=== PATIENT | male | born 1970 | race Caucasian/White ===

== ENCOUNTER 2018-12-04 14:35 | Emergency (ER) | payer MEDICAID, SELFPAY ==
[2018-12-04 14:36] VITALS: BP 117/63; PULSE 68; RESP 15; TEMP 36.6; O2SAT 97; BMI 24.3
--- NOTE | 2018-12-04 15:19 | ED.VIS.GEN ---
History of Present Illness Chief Complaint: Back Narrative: 48-year-old male presents with right lower back pain radiating into his right buttocks since yesterday while doing a bunch of yard work. He denies any direct trauma but states that he was doing a lot of bending over and lifting. The pain is worse with bending forward and better with ice. He denies bowel bladder dysfunction. Denies groin paresthesias. Denies lower extremity weakness. He can still ambulate without difficulty but he could not finish his shift today so he came in here for a work excuse. He has had a history of chronic back pain and underwent a procedure in the past. He has been doing well for quite some time until yesterday. He denies fever, chills, or history of IV drug use. Past Medical History - Allergies and Home Meds Allergies/Adverse Reactions: Allergies No Known Allergies Allergy (Verified 12/04/18 14:42) Primary Care Physician: Care Physician,No Primary [Primary Care Provider] - Prior records reviewed: Yes Surgical History: - - He has had surgery on his left hand to repair fractures after punching a wall. Smoking Status: Former smoker Review of Systems General: Denies: Chills, Fever, Sweats Eyes: Denies: Visual changes - bilaterally, Diplopia ENT: Denies: Rhinorrhea, Sore throat Cardiovascular: Denies: Chest pain, Palpitations Respiratory: Denies: Dyspnea, Cough, Dyspnea on exertion Gastrointestinal: Denies: Abdominal pain, Nausea, Vomiting, Diarrhea, Melena, Hematochezia Genitourinary: Denies: Dysuria, Hematuria, Frequency Musculoskeletal: Reports: Back pain. Denies: Extremity Pain Skin: Denies: Rash, Wounds Neurological: Denies: Headache, Weakness, Numbness Physical Exam Vital Signs/Narrative: Vital Signs Temp Pulse Resp BP Pulse Ox 12/04/18 14:36 97.9 F 68 15 117/63 97 General: Well nourished, Well developed, No Acute Distress Head: Normocephalic, Atraumatic Eyes: Perrl, EOMI ENT: Moist mucous membranes, No rhinorrhea Neck: Supple, Nontender Cardiovascular: Regular rate, Regular rhythm, No murmurs Respiratory: No distress, CTA bilaterally, Chest nontender Abdomen: Soft, Nontender, Nondistended, Normal bowel sounds Back: Normal Inspection, - - Paraspinal lumbar tenderness on the right. No midline tenderness, erythema, or fluctuance. Overlying skin looks normal. No rash. Extremities: Nontender, No edema Skin: Normal color, No rash Neurological: Alert, Oriented x3, Cranial nerves II-XII grossly intact, Normal Strength, Normal Sensation Psychological: Normal affect, Normal Mood Diagnostic/Tx/Re-eval - Medical Decision Making No evidence of cauda equina syndrome or paraspinal/epidural abscess. No evidence of cauda equina. He is standing in the room I examined him. He can stand on his toes without difficulty. I do not feel he needs an emergent MRI. His pain was addressed and he was given prescriptions to use at home. He will follow-up with his doctor if not improving and return here if worse. ED Disposition - Plan for ED Patient: Diagnosis: Right-sided low back pain with sciatica Instructions: BACK PAIN (Acute or Chronic), BACK PAIN w/ SCIATICA Prescriptions: cycloBENZAPRine HCl [Flexeril] 10 mg PO TID PRN #20 tablet PRN Reason: Muscle Spasm MethylPREDNISolone DosePak [Medrol DosePak] 4 mg PO UD #1 box Naproxen [Naprosyn] 500 mg PO BID PRN #20 tablet Referrals: Care Physician,No Primary [Primary Care Provider] - As soon as possible
[2018-12-04] MEDS: cycloBENZAPRine HCl 10 MG Tablet PO (15:32)
[2018-12-04] MEDS: Naproxen 500 MG Tablet PO (15:32)
[2018-12-04 15:34] VITALS: PULSE 72; RESP 16; O2SAT 96
== END 2018-12-04 15:35 | disposition home or self-care (01) ==
LOC: ED 15:00
PROVIDERS: Emergency Provider Emergency Medicine
DX: M54.41 Lumbago with sciatica, right side (principal); Z87.891 Personal history of nicotine dependence
CPT/HCPCS: 99283

== ENCOUNTER 2019-12-07 09:14 | Emergency (ER) | payer MEDICAID, SELFPAY ==
[2019-12-07 09:15] VITALS: BP 134/78; PULSE 76; RESP 15; TEMP 36.4; O2SAT 97; BMI 25.5
--- NOTE | 2019-12-07 09:30 | RAD_ITS ---
STUDY: X-RAY - RIGHT HAND REASON FOR EXAM: Male, 49 years old. RIGHT HAND PAIN. SMALL PUNCTURE HOLE FROM NAIL ON THE MEDIAL SIDE. HX OF HAND SURGERY TECHNIQUE: Three view(s) of the hand. COMPARISON: None. FINDINGS: Normal radiocarpal articulation. Normal distal radioulnar joint. Normal visualized carpal bones. Normal carpal articulations surgical hardware in the hamate is free of complication Normal carpometacarpal articulation of the thumb. Normal second through fifth carpometacarpal joints. Old healed fifth metacarpal fracture. Normal metacarpophalangeal joint of the thumb. Normal interphalangeal joint of the thumb. Normal proximal and distal phalanges of the thumb. Normal metacarpophalangeal joints of the second through fifth fingers. Normal proximal and distal interphalangeal joints of the second through fifth fingers. Normal phalanges of the second through fifth fingers. The soft tissue structures are unremarkable. RAD/Hand Min 3 Views IMPRESSION: No acute findings Old healed fifth metacarpal fracture Surgical hardware in the hamate free of complication Electronically Signed: Dez Dumont MD at 10:09 EDT , Service support ,
--- NOTE | 2019-12-07 09:30 | ED.DCSUM_ITS ---
History of Present Illness Chief Complaint: Laceration Informant: Patient Narrative: 49-year-old male with no significant past medical history presents with concern for right hand injury. States that he woke up this morning and tripped putting his hand on a nail head. States that it did puncture through his skin approximately 1 cm deep. States that he is having pain in this area. Not up-to-date on tetanus. Denies any sensory changes. Past Medical History - Allergies and Home Meds Allergies/Adverse Reactions: Allergies No Known Allergies Allergy (Verified 12/07/19 09:17) Primary Care Physician: Care Physician,No Primary [Primary Care Provider] - Past Medical History: None Surgical History: - - He has had surgery on his left hand to repair fractures after punching a wall. Lives: Alone Alcohol: None Drugs: None Review of Systems General: Denies: Chills, Fever, Sweats Eyes: Denies: Visual changes - bilaterally, Diplopia ENT: Denies: Rhinorrhea, Sore throat Cardiovascular: Denies: Chest pain, Palpitations Respiratory: Denies: Dyspnea, Cough, Dyspnea on exertion Gastrointestinal: Denies: Abdominal pain, Nausea, Vomiting, Diarrhea, Melena, Hematochezia Genitourinary: Denies: Dysuria, Hematuria, Frequency Musculoskeletal: Denies: Back pain, Extremity Pain Skin: Reports: Wounds. Denies: Rash Neurological: Denies: Headache, Weakness, Numbness Physical Exam Vital Signs/Narrative: Vital Signs Temp Pulse Resp BP Pulse Ox 12/07/19 09:15 97.6 F L 76 15 134/78 H 97 Inital Vital Signs reviewed: Yes General: Well nourished, Well developed, No Acute Distress Head: Normocephalic, Atraumatic Eyes: Perrl, EOMI ENT: Moist mucous membranes, No rhinorrhea Neck: Supple, Nontender Cardiovascular: Regular rate, Regular rhythm, No murmurs Respiratory: No distress, CTA bilaterally, Chest nontender Abdomen: Soft, Nontender, Nondistended, Normal bowel sounds Back: Nontender, Normal Inspection Extremities: Nontender, No edema Skin: Normal color, No rash, - - Small puncture wound to the palmar aspect of the right hand. Not actively bleeding. Mild tenderness to palpation. Full range of motion of all fingers. Neurological: Alert, Oriented x3, Cranial nerves II-XII grossly intact, Normal Strength, Normal Sensation Psychological: Normal affect, Normal Mood Diagnostic/Tx/Re-eval Clinical Impression(s) from Imaging Studies Hand X-Ray 12/07/19 09:30 IMPRESSION: No acute findings Old healed fifth metacarpal fracture Surgical hardware in the hamate free of complication Electronically Signed: Dez Dumont MD at 10:09 EDT , Service support , - Medical Decision Making Appears well nontoxic. Vital signs within normal limits. X-ray negative. Tetanus updated. Given the nature of the wound patient be placed on doxycycline for the next 10 days. Asked to return for any increasing pain or drainage. Will be given 2 days off of work. Discharged home in stable condition. Impression: 1. Right hand puncture wound 2. Tetanus update ED Disposition - Plan for ED Patient: Disposition: Home or Assisted Living Instructions: ED Wound Puncture General Prescriptions: Doxycycline 100 mg PO BID #14 cap Transmission Status: Pending to [facility] #[id number] Referrals: Care Physician,No Primary [Primary Care Provider] -
[2019-12-07] MEDS: Diphth,Pertuss(Acell),Tet Vac 0.5 ML Vial IM (09:56)
[2019-12-07 10:21] VITALS: RESP 16
--- NOTE | 2019-12-07 10:22 | ED.RN ---
REVIEWED D/C INSTRUCTIONS, FOLLOW UP CARE, AND S/S THAT WOULD WARRANT A RETURN TO THE ED WITH PT. PT VERBALIZED AN UNDERSTANDING AND DENIES FURTHER QUESTIONS FOR THIS RN. PT SKIN P/W/D, RESP EVEN AND UNLABORED, PT A&O X 3, NO DISTRESS NOTED. PT AMBULATED OUT OF ED, GAIT STEADY.
== END 2019-12-07 10:24 | disposition home or self-care (01) ==
PROVIDERS: Emergency Provider Emergency Medicine
DX: S61.431A Puncture wound without foreign body of right hand, initial encounter (principal); W18.41XA Slipping, tripping and stumbling without falling due to stepping on object, initial encounter; Y93.9 Activity, unspecified; Y92.89 Other specified places as the place of occurrence of the external cause; Y99.9 Unspecified external cause status; Z23 Encounter for immunization
CPT/HCPCS: 73130; 90471; 90715; 99282

== ENCOUNTER 2020-01-07 10:22 | Emergency (ER) | payer MEDICAID, SELFPAY ==
[2020-01-07 10:23] VITALS: BP 109/71; PULSE 89; RESP 17; TEMP 36; O2SAT 95; BMI 24.0
--- NOTE | 2020-01-07 10:47 | ED.DCSUM_ITS ---
History of Present Illness Chief Complaint: Cough Informant: Patient Onset: Yesterday Context: Gradual Onset Timing: Continuous Quality: [employer] cough Location: chest Current Severity: Moderate Maximum Severity: Moderate Worsened by: - - exertional dyspnea Relieved by: - - rest Associated Symptoms: Headache, Nausea, Vomiting - dry heaves this AM, Diarrhea - once yesterday, Shortness of Breath - w/ exertion, Nonproductive cough. Negative for: Nasal Congestion, Chest Pain, Hemoptysis Narrative: Patient started feeling poorly yesterday, with nausea and decreased appetite. Today he has felt a lot worse. Cold chills, myalgias, headache, exertional dyspnea, severe fatigue and malaise. 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 He denies any known contact with anyone infected with COVID-19. He denies traveling out of the immediate area recently. 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 Past Medical History - Allergies and Home Meds Allergies/Adverse Reactions: Allergies No Known Allergies Allergy (Verified 01/07/20 10:23) Primary Care Physician: Care Physician,No Primary [Primary Care Provider] - Past Medical History: None Surgical History: - - He has had surgery on his left hand to repair fractures after punching a wall. Review of Systems General: Reports: Chills, Malaise. Denies: Fever, Sweats Eyes: Denies: Visual changes - bilaterally, Diplopia ENT: Denies: Bilateral ear pain, Rhinorrhea, Sore throat Cardiovascular: Denies: Chest pain, Palpitations Respiratory: Reports: Dyspnea, Cough, Dyspnea on exertion. Denies: Sputum, Orthopnea Gastrointestinal: Reports: Nausea, Vomiting, Diarrhea. Denies: Abdominal pain, Melena, Hematochezia Genitourinary: Denies: Dysuria, Hematuria, Frequency Musculoskeletal: Reports: Myalgias, Back pain - Chronic. Denies: Neck pain, Swelling, Extremity Pain Skin: Denies: Rash, Wounds Neurological: Reports: Headache. Denies: Weakness, Numbness Physical Exam Vital Signs/Narrative: Vital Signs Temp Pulse Resp BP Pulse Ox 01/07/20 10:23 96.8 F L 89 17 109/71 95 Inital Vital Signs reviewed: Yes General: Well nourished, Well developed, - - No acute distress. Conversive in full sentences. Head: Normocephalic, Atraumatic Eyes: Perrl, EOMI Nose: Normal Inspection, No Rhinorrhea Neck: Supple, Nontender, No Lymphadenopathy, No Meningismus Cardiovascular: Regular rate, Regular rhythm, No murmurs Respiratory: No distress, CTA bilaterally, Chest nontender Abdomen: Soft, Nontender, Nondistended, Normal bowel sounds Back: Nontender, Normal Inspection. Negative for: CVA tenderness Extremities: Nontender, No edema. Negative for: Calf Tenderness Skin: Normal color, No rash, No Trauma Neurological: Alert, Oriented x3, Cranial nerves II-XII grossly intact, Normal Strength, Normal Sensation, Normal Gait Psychological: Normal affect, Normal Mood Diagnostic/Tx/Re-eval Chest X-Ray - ED: 1 View, Read by ED Physician, Normal, Heart, Lungs, Mediastinum, No Acute Disease - Medical Decision Making Chest x-ray unremarkable my interpretation. After Toradol and Zofran he feels a little better. He is not hypoxic and his vitals are normal, stable for discharge home and rest and quarantine as COVID-19 disease is certainly possible. He was tested, it is a send out and will return in 3-5 days. Given patient work note, prescription for Zofran, and appropriate quarantine discharge instructions. Referred to the next doctor on the unassigned list, Dr. Marinelli. ED Disposition - Plan for ED Patient: Disposition: Home or Assisted Living Diagnosis: Acute upper respiratory infection Instructions: ED URI Viral Prescriptions: Ondansetron [Zofran Odt] 8 mg PO Q8H PRN PRN #10 tab PRN Reason: Nausea Transmission Status: Pending to [facility] #30 Referrals: Chandler Marinelli, [NON CLINICAL AFFILIATE] - 1 Week if not improving Additional Instructions: See attached quarantine COVID-19 information.
[2020-01-07] MEDS: Ondansetron ODT 4 MG Tablet 8 MG PO (11:54)
[2020-01-07] MEDS: Ketorolac 60 MG/2 ML Vial IM (11:54)
[2020-01-07 11:55] VITALS: BP 117/80; PULSE 59; RESP 17; O2SAT 95
--- NOTE | 2020-01-07 11:58 | RAD_ITS ---
STUDY: X-RAY CHEST REASON FOR EXAM: Male, 49 years old. Cough, congestion, nausea, sore throat, SOB x today TECHNIQUE: Single AP portable view of the chest. COMPARISON: Comparison is made with prior study dated 02/11/2012. FINDINGS: There is hyperinflation of the lungs consistent with chronic obstructive lung disease (COPD). There is no demonstrated pleural abnormality. Normal size heart. Normal mediastinum and juan david. Normal visualized pulmonary arteries. Normal visualized aortic arch and descending thoracic aorta. Normal visualized thoracic spine. Normal visualized ribs, clavicles, and shoulders. There is no demonstrated abnormality of the visualized soft tissue structures of the upper abdomen. RAD/Chest 1 View (Portable) IMPRESSION: Hyperinflation. The lungs are clear. Electronically Signed: Emery Dunham, at 12:22 EDT , Service support ,
[2020-01-07 12:03] VITALS: O2SAT 96
[2020-01-07 13:29] VITALS: RESP 19; TEMP 36.6
== END 2020-01-07 13:30 | disposition home or self-care (01) ==
PROVIDERS: Emergency Provider Emergency Medicine
DX: J06.9 Acute upper respiratory infection, unspecified (principal)
CPT/HCPCS: 71045; 87635; 94799; 96372; 99283; U0003

== ENCOUNTER 2020-01-19 13:34 | Emergency (ER) | payer MEDICAID, SELFPAY ==
[2020-01-19 13:36] VITALS: BP 103/63; PULSE 78; RESP 18; TEMP 36.6; O2SAT 99; BMI 23.8
--- NOTE | 2020-01-19 13:48 | RAD_ITS ---
STUDY: X-RAY CHEST REASON FOR EXAM: Male, 49 years old. COUGH, CHILLS X 2 WEEKS TECHNIQUE: Frontal view of the chest COMPARISON: January 07 2020 FINDINGS: The lungs are clear and expanded. There is no demonstrated pleural abnormality. Normal size heart. Normal mediastinum and juan david. Normal visualized pulmonary arteries. Normal visualized aortic arch and descending thoracic aorta. Normal visualized thoracic spine. Normal visualized ribs, clavicles, and shoulders. There is no demonstrated abnormality of the visualized soft tissue structures of the upper abdomen. RAD/Chest 1 View (Portable) IMPRESSION: Normal x-ray examination of the chest. Electronically Signed: Bere Sultana, at 14:47 EDT Tel , Service support ,
--- NOTE | 2020-01-19 13:48 | EKG12_ITS ---
Test Reason : COUGH Blood Pressure : / mmHG Vent. Rate : 064 BPM Atrial Rate : 064 BPM P-R Int : 164 ms QRS Dur : 092 ms QT Int : 428 ms P-R-T Axes : 074 081 062 degrees QTc Int : 441 ms Normal sinus rhythm Poor R- wave Progression Confirmed by FELECIA GARNER, JENY ([id number]), editorial manager ILAN BLACK ([id number]) on 01/23/2020 10:00:49 AM Referred By: ANTONIA Confirmed By:JENY IZQUIERDO MD
--- NOTE | 2020-01-19 14:09 | ED.DCSUM_ITS ---
History of Present Illness Chief Complaint: Cough Informant: Patient Onset: Weeks Context: Sudden Onset Timing: Continuous Quality: Cough, upper respiratory symptoms, malaise and rigors Location: Respiratory and generalized Current Severity: Mild Maximum Severity: Moderate Worsened by: Dyspnea with activity Relieved by: Nothing Associated Symptoms: Read HPI Narrative: Patient is a 49-year-old male who was tested for Kopit 2 weeks ago. He presents because of persistent symptoms. He has been exposed to coworkers with COVID. He presents with shaking chills, myalgias and arthralgias. He complains of generalized weakness. His cough is essentially nonproductive. He is a smoker half pack per day. He does report rhinorrhea, congestion postnasal drainage and sore throat. He does complain of intermittent mild headache. Denies photopho poonam, neck pain or neck stiffness. He denies any auditory symptoms. He does complain of discomfort on the right side with deep breathing. He has no history of VTE. He has no complaint of leg swelling, discoloration or asymmetry. He denies any discoloration of his digits upper or lower extremity. He denies urologic symptoms. He does report orthostatic symptoms. He has had decreased appetite. Prior similar symptoms: Yes Recent Illness/Hospitalization: Yes - Past Medical History (1) Drug overdose, intentional Status: Acute (2) Chronic back pain greater than 3 months duration Status: Chronic (3) Depression Status: Chronic Past Medical History - Allergies and Home Meds Allergies/Adverse Reactions: Allergies No Known Allergies Allergy (Verified 01/19/20 13:38) Primary Care Physician: Care Physician,No Primary [Primary Care Provider] - Prior records reviewed: Yes Surgical History: noncontributory, - - He has had surgery on his left hand to repair fractures after punching a wall. Lives: Alone Smoking Status: Current every day smoker Alcohol: Rare Drugs: - - History of marijuana and drug use per prior medical records Review of Systems General: Reports: Chills, Malaise, Sweats. Denies: Fever, Weight loss Eyes: Denies: Visual changes - right, Blurred Vision - bilaterally ENT: Reports: Rhinorrhea, Sore throat. Denies: Bilateral ear pain Cardiovascular: Reports: Chest pain - Pleuritic right lower lobe. Denies: P alpitations, Heart racing Respiratory: Reports: Dyspnea, Cough, Sputum, Dyspnea on exertion. Denies: Orthopnea, Paroxysmal nocturnal dyspnea Gastrointestinal: Reports: Abdominal pain, Nausea, Diarrhea - Patient states watery stool 2 to 3/day. No blood or mucus noted.. Denies: Vomiting Genitourinary: Denies: Dysuria, Hematuria, Frequency Musculoskeletal: Reports: Myalgias, Arthralgias, Extremity Pain. Denies: Neck pain, Back pain, Swelling Skin: Denies: Rash, Wounds Neurological: Reports: Weakness. Denies: Headache, Parasthesia Endocrine: Denies: Polyuria, Polydipsia Hematologic: Denies: Easy bruising, Easy bleeding Allergy: Denies: Uticaria, Swelling of the mouth Physical Exam Vital Signs/Narrative: Vital Signs Temp Pulse Resp BP Pulse Ox 01/19/20 13:36 97.8 F 78 18 103/63 99 Inital Vital Signs reviewed: Yes Respiratory: No distress, Chest nontender, Decreased Air Movement - Dioni breath sounds right lower lobe with end inspiratory rales and wheezing on forced expiration. There is also egophony and increased vocal fremitus noted right lower lobe posteriorly near the posterior axillary line.. Negative for: CTA bilaterally Abdomen: Soft, Nontender, Nondistended, Normal bowel sounds, No masses. Negative for: Hepatomegaly, Splenomegaly, Mass, Pulsatile mass Rectal: Deferred Back: Nontender, Normal Inspection. Negative for: CVA tenderness Extremities: Nontender, No edema Skin: Normal color, No rash, No Trauma. Negative for: Cyanosis, Diaphoresis, Jaundice Neurological: Alert, Oriented x3, Cranial nerves II-XII grossly intact, Normal Strength, Normal Sensation, Normal DTR Psychological: Normal affect, Normal Mood Diagnostic/Tx/Re-eval Chest X-Ray - ED: 1 View, Read by ED Physician, - - X-ray was interpreted by me at 1436. The x-ray is normal and unchanged from January 07, 2020. Cardiac size silhouette normal. Mediastinum normal. Lung parenchyma normal. Osseous structures are normal. Impressions Chest X-Ray 01/19/20 13:48 IMPRESSION: Normal x-ray examination of the chest. Electronically Signed: Bere Sultana, at 14:47 EDT Tel , Service support , 01/19/20 13:48 Chest 1 View (Portable) [RAD] Stat Laboratory Results 01/19/20 01/19/20 01/19/20 14:05 14:05 14:05 WBC 7.3 RBC 4.57 L Hgb 14.8 Hct 43.8 MCV 95.8 H MCH 32.4 H MCHC 33.8 RDW Std Deviation 41.7 RDW Coeff of Frank 12.1 Plt Count 314 MPV 9.6 Immature Gran % (Auto) 0.700 Neut % (Auto) 63.5 Lymph % (Auto) 24.7 Whitman % (Auto) 8.4 Eos % (Auto) 1.9 Baso % (Auto) 0.8 Absolute Neuts (auto) 4.6 Absolute Lymphs (auto) 1.80 Nucleated RBC % 0 Sodium 142 Potassium 3.9 Chloride 109 H Carbon Dioxide 26.0 Anion Gap 7 BUN 11 Creatinine 1.26 Estim Creat Clear Calc 89.38 Est GFR (MDRD) Af Amer 78 Est GFR (MDRD) Non-Af 65 BUN/Creatinine Ratio 8.7 L Glucose 80 Lactic Acid 1.6 Calcium 8.4 L Total Bilirubin 0.20 AST 20 ALT 21 Alkaline Phosphatase 68 Total Protein 7.1 Albumin 3.8 Globulin 3.3 Albumin/Globulin Ratio 1.2 - Medical Decision Making Patient has symptoms that are suspicious for COVID. COVID order set was initiated. Clinically patient has a right lower lobe infiltrate. Appropriate work-up was initiated. Clinically patient has pneumonia right lower lobe. He was placed on doxycycline. Since he does have wheezing will dispense albuterol metered-dose inhaler. He has been instructed to quit smoking. ED Disposition - Plan for ED Patient: Disposition: Home or Assisted Living Diagnosis: Right lower lobe pneumonia Instructions: ED PNEUMONITIS Adult Prescriptions: Doxycycline 100 mg PO BID #14 cap Transmission Status: Pending to [facility] #30 Albuterol Inhaler [Ventolin Hfa] 2 puff INHALATION Q4H PRN PRN #1 inhaler PRN Reason: Wheezing Transmission Status: Pending to [facility] #30 Referrals: Care Physician,No Primary [Primary Care Provider] - Bella Ordoñez DO [STAFF PHYSICIAN] - 1 Week if not improving Additional Instructions: States she did not have a primary care physician you were referred to Dr. Bella Ordoñez. It is in your best interest to quit smoking.
[2020-01-19 14:20] VITALS: BP 133/61; PULSE 67; RESP 26; TEMP 36.6; O2SAT 97
[2020-01-19 14:23] LABS: Absolute Neutrophil Count 4.6 X10^3/uL (2.0-7.7); Basophil# 0.06 X10^3/uL; Basophil% 0.8 % (0-1); Eosinophil# 0.14 X10^3/uL; Eosinophils% 1.9 % (0-5); Hematocrit 43.8 % (40-54); Hemoglobin 14.8 g/dL (13.0-16.5); Lymphocyte % 24.7 % (19-41); Mean Corp Hgb Conc 33.8 g/dL (32-36); Mean Corpuscular Hgb 32.4 pg (27.0-32.0); Mean Corpuscular Volume 95.8 fL (80-94); Mean Platelet Vol. 9.6 fl (6.2-12.0); Monocyte# 0.61 X10^3/uL; Monocyte% 8.4 % (0-10); NRBC Flagged by Analyzer 0 % (0-5); Neutrophil # 4.62 X10^3/uL (2.7-7.7); Neutrophil % 63.5 % (47-70); Platelet Count 314 K/mm3 (150-450); RBC Distribution Width CV 12.1 % (11.6-14.6); RBC Distribution Width SD 41.7 fl (35.1-43.9); Red Blood Count 4.57 M/mm3 (4.6-6.2); White Blood Count 7.3 K/mm3 (4.4-11.0)
[2020-01-19] MEDS: Ketorolac 15 MG/ML Vial IV (14:30)
[2020-01-19 14:39] LABS: ALB/GLOB Ratio 1.2 RATIO (0.9-2.4); AST(SGOT) 20 U/L (15-37); Alanine Aminotransfer ALT/SGPT 21 U/L (16-61); Albumin, Serum 3.8 g/dL (3.2-5.0); Alkaline Phosphatase 68 U/L (45-117); Anion Gap 7 (5-15); BUN 11 mg/dL (7-18); BUN/Creat Ratio 8.7 RATIO (10-20); Calcium,Total 8.4 mg/dL (8.5-10.1); Chloride 109 mmol/L (98-107); Creatinine, Serum 1.26 mg/dL (0.70-1.30); EST Glomerular Filtration Rate 65 mL/min (>60); Est Glom Filt Rate - Afr Amer 78 mL/min (>60); Estimated Creatinine Clearance 89.38 ml/min; Globulin 3.3 g/dL (2.2-4.2); Glucose 80 mg/dL (74-106); Potassium 3.9 mmol/L (3.5-5.1); Protein, Total 7.1 g/dL (6.4-8.2); Sodium Level 142 mmol/L (136-145)
[2020-01-19 14:44] LABS: Lactic Acid 1.6 mmol/L (0.4-1.9)
[2020-01-19 15:07] VITALS: BP 122/76; PULSE 59; RESP 16; O2SAT 97
[2020-01-19] MEDS: Doxycycline 100 MG CAPSULE PO (15:07)
== END 2020-01-19 15:08 | disposition home or self-care (01) ==
PROVIDERS: Emergency Provider Emergency Medicine
DX: J18.9 Pneumonia, unspecified organism (principal); F17.210 Nicotine dependence, cigarettes, uncomplicated; G89.29 Other chronic pain; M54.9 Dorsalgia, unspecified; F32.9 Major depressive disorder, single episode, unspecified
CPT/HCPCS: 71045; 80053; 83605; 85025; 87040; 87633; 87635; 93005; 96374; 99285; C9803; U0003

== ENCOUNTER 2020-01-20 13:08 | Emergency (ER) | payer MEDICAID, SELFPAY ==
[2020-01-19 13:36] VITALS: BMI 23.8
[2020-01-20] VITALS (10 sets, daily range): BP systolic 113–149; BP diastolic 67–102; PULSE 64–106; RESP 15–22; TEMP 37; O2SAT 96–98; BMI 26.1
--- NOTE | 2020-01-20 13:48 | EKG12_ITS ---
Test Reason : OD Blood Pressure : / mmHG Vent. Rate : 073 BPM Atrial Rate : 073 BPM P-R Int : 174 ms QRS Dur : 092 ms QT Int : 404 ms P-R-T Axes : 076 069 049 degrees QTc Int : 445 ms Normal sinus rhythm Normal ECG Confirmed by FELECIA GARNER, JENY ([id number]), index editor ILAN BLACK ([id number]) on 01/23/2020 9:40:59 AM Referred By: KENY Confirmed By:JENY IZQUIERDO MD
[2020-01-20 14:03] LABS: Absolute Lymphocyte Count 1.55 X10^3/uL (0.83-4.51); Absolute Neutrophil Count 4.8 X10^3/uL (2.0-7.7); Basophil# 0.06 X10^3/uL; Basophil% 0.9 % (0-1); Eosinophils% 1.4 % (0-5); Hematocrit 41.1 % (40-54); Hemoglobin 13.5 g/dL (13.0-16.5); Lymphocyte # 1.55 X10^3/ul (4.0); Lymphocyte % 22.4 % (19-41); Mean Corp Hgb Conc 32.8 g/dL (32-36); Mean Corpuscular Hgb 31.7 pg (27.0-32.0); Mean Corpuscular Volume 96.5 fL (80-94); Mean Platelet Vol. 9.6 fl (6.2-12.0); Monocyte# 0.41 X10^3/uL; Monocyte% 5.9 % (0-10); NRBC Flagged by Analyzer 0 % (0-5); Neutrophil # 4.77 X10^3/uL (2.7-7.7); Platelet Count 312 K/mm3 (150-450); RBC Distribution Width CV 12.3 % (11.6-14.6); RBC Distribution Width SD 43.1 fl (35.1-43.9); Red Blood Count 4.26 M/mm3 (4.6-6.2); White Blood Count 6.9 K/mm3 (4.4-11.0)
[2020-01-20 14:13] LABS: Amphetamine Urine VISTA POSITIVE (<1000 ng/mL); Anion Gap 7 (5-15); BUN 12 mg/dL (7-18); BUN/Creat Ratio 9.9 RATIO (10-20); Barbiturate Urine VISTA NEGATIVE (< 200 ng/mL); Benzodiazepine Urine VISTA NEGATIVE (< 200 ng/mL); Calcium,Total 8.2 mg/dL (8.5-10.1); Chloride 108 mmol/L (98-107); Cocaine Urine VISTA POSITIVE (< 300 ng/mL); Creatinine, Serum 1.21 mg/dL (0.70-1.30); EST Glomerular Filtration Rate 68 mL/min (>60); Ecstacy Urine VISTA NEGATIVE (< 500 ng/mL); Est Glom Filt Rate - Afr Amer 82 mL/min (>60); Estimated Creatinine Clearance 93.07 ml/min; Glucose 107 mg/dL (74-106); Methadone Urine VISTA NEGATIVE (< 300 ng/mL); PCP Urine VISTA NEGATIVE (< 25 ng/mL); Potassium 3.8 mmol/L (3.5-5.1); Sodium Level 140 mmol/L (136-145); THC Urine VISTA POSITIVE (< 50 ng/mL); Vista UDS pH Range 6
[2020-01-20 14:14] LABS: Acetaminophen (Tylenol) Level < 2.0 ug/mL (10.0-30.0); Salicylate < 1.7 mg/dL (2.8-20.0)
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
[2020-01-20 17:48] LABS: Probe Check PASS; Specimen Processing Control PASS
--- NOTE | 2020-01-20 18:19 | NURSING ---
FAXED CHART TO [facility]
--- NOTE | 2020-01-20 18:20 | EKG12_ITS ---
Test Reason : REPEAT Blood Pressure : / mmHG Vent. Rate : 060 BPM Atrial Rate : 060 BPM P-R Int : 162 ms QRS Dur : 090 ms QT Int : 438 ms P-R-T Axes : 070 075 061 degrees QTc Int : 438 ms Normal sinus rhythm Normal ECG Confirmed by FELECIA GARNER, JENY ([id number]), editor house organ ILAN BLACK ([id number]) on 01/23/2020 9:41:12 AM Referred By: AMANDA Confirmed By:JENY IZQUIERDO MD
[2020-01-20] MEDS: Acetaminophen 500 MG Tablet 1000 MG PO ×2 (19:00→23:16)
[2020-01-20] MEDS: Ipratropium/Albuterol Sulfate 3 ML AMPUL.NEB INHALATION (19:06)
[2020-01-20] MEDS: Doxycycline 100 MG CAPSULE PO (19:15)
--- NOTE | 2020-01-20 19:58 | ED.RN ---
BRIDGET FROM [facility] CALLED AND TORSTEN WILL BE RESUMING THE CASE, PT IS NEXT ON THE LIST.
--- NOTE | 2020-01-20 19:59 | ED.RN ---
KAJAL FROM POISON CONTROL CALLED FOR AN UPDATE ON THE PT. THIS NURSE SPOKE WITH KAJAL. PT WAS CLEARED BY FOR [facility] TO SEE.
[2020-01-21] VITALS: BP 117/77; PULSE 56; RESP 20; O2SAT 97
[2020-01-21] MEDS: Ibuprofen 400 MG Tablet 800 MG PO (00:46)
[2020-01-21] MEDS: oxyCODONE 5 MG Tablet PO (00:46)
[2020-01-21 01:00] VITALS: BP 93/78; PULSE 62; RESP 23; O2SAT 98
[2020-01-21] MEDS: Ziprasidone IM 20 MG/ML VIAL IM (01:16)
[2020-01-21 01:30] VITALS: PULSE 88; RESP 16
[2020-01-21] MEDS: Albuterol 2.5 MG/3 ML VIAL.NEB. INHALATION (01:36)
[2020-01-21 02:50] VITALS: BP 129/80; PULSE 65; RESP 17; O2SAT 98
[2020-01-21 03:14] VITALS: BP 129/80; PULSE 62; RESP 15; O2SAT 98
--- NOTE | 2020-01-21 03:39 | ED.RN ---
update called to pt per pt request.
== END 2020-01-21 03:38 ==
LOC: ED 13:34
PROVIDERS: Emergency Medicine; Emergency Provider Emergency Medicine
DX: T14.91XA Suicide attempt, initial encounter (principal); T45.0X2A Poisoning by antiallergic and antiemetic drugs, intentional self-harm, initial encounter; Y92.9 Unspecified place or not applicable; F32.9 Major depressive disorder, single episode, unspecified; S62.304A Unspecified fracture of fourth metacarpal bone, right hand, initial encounter for closed fracture; S62.306A Unspecified fracture of fifth metacarpal bone, right hand, initial encounter for closed fracture
CPT/HCPCS: 29125; 73130; 80048; 80307; 80320; 80329; 85025; 87635; 93005; 94640; 99285; C9803; A4216; G0480; J3486; U0003

== ENCOUNTER → 2020-02-01 11:15 | Outpatient (CLI) | payer MEDICAID, SELFPAY ==
[2020-01-28 16:44] VITALS: BMI 26.1
[2020-02-01 10:30] VITALS: BP 126/65; PULSE 78; RESP 16; TEMP 36.9; O2SAT 100; BMI 23.9
[2020-02-01] MEDS: Lactated Ringers 1,000 ML 100 ML IV (10:40)
[2020-02-01 10:55] LABS: Amphetamine Urine VISTA POSITIVE (<1000 ng/mL); Barbiturate Urine VISTA NEGATIVE (< 200 ng/mL); Benzodiazepine Urine VISTA NEGATIVE (< 200 ng/mL); Cocaine Urine VISTA POSITIVE (< 300 ng/mL); Ecstacy Urine VISTA POSITIVE (< 500 ng/mL); Methadone Urine VISTA NEGATIVE (< 300 ng/mL); PCP Urine VISTA NEGATIVE (< 25 ng/mL); THC Urine VISTA POSITIVE (< 50 ng/mL); Vista UDS pH Range 6
== END ==
PROVIDERS: Anesthesiology; Referring Provider Orthopaedic Surgery; Visit Provider Orthopaedic Surgery
DX: Z01.812 Encounter for preprocedural laboratory examination (principal); Z53.9 Procedure and treatment not carried out, unspecified reason; S92.343A Displaced fracture of fourth metatarsal bone, unspecified foot, initial encounter for closed fracture; S92.353A Displaced fracture of fifth metatarsal bone, unspecified foot, initial encounter for closed fracture
CPT/HCPCS: 80307; J7120; J2405

== ENCOUNTER 2020-06-12 12:29 | Emergency (ER) | payer MEDICAID, SELFPAY ==
[2020-02-01 10:30] VITALS: BMI 23.9
[2020-06-12 12:30] VITALS: BP 126/84; PULSE 88; RESP 18; TEMP 36.1; O2SAT 100; BMI 23.9
--- NOTE | 2020-06-12 12:48 | CT_ITS ---
STUDY: CT ABDOMEN AND PELVIS WITH CONTRAST REASON FOR EXAM: Male, 49 years old. ABDOMINAL PAIN WITH HEADACHE. HX OF PANCREATITIS. DRUG USER RADIATION DOSAGE (If Supplied By Facility): CTDIvol = ( 12.08 ) mGy, DLP = ( 743.14 ) mGycm TECHNIQUE: Transaxial images were obtained from the dome of the diaphragm to the symphysis pubis without oral contrast. IV 100mL Isovue-300 was administered. Sagittal and coronal images were reconstructed. Individualized dose optimization techniques were used for this CT. COMPARISON: Comparison is made with prior study 07/27/2012. FINDINGS: Mild degree of increased markings at the lung bases slightly worse on the left side suggestive of atelectasis. The visualized portions of the heart are within normal limits. Normal liver. Normal gallbladder and extrahepatic biliary system. Normal spleen. Normal pancreas. Normal bilateral adrenal glands. There is a 1.6 m cyst in the lower posterior aspect of the right kidney. Normal left kidney. Normal visualized stomach. Normal small intestine. Normal colon. The appendix is visualized and appears normal. Normal abdominal aorta. Normal inferior vena cava. There is borderline retroperitoneal lymphadenopathy with enlarged nodes no greater than 10mm in the short axis diameter. Normal urinary bladder. Small bilateral inguinal hernias containing fat. Normal osseous structures. CT/Abdomen/Pelvis W IV Cont ONLY IMPRESSION: Mild degree of increased markings at the lung bases slightly more prominent on the left side suggestive of atelectasis. Electronically Signed: Emery Dunham MD at 14:07 EST , Service support ,
[2020-06-12 12:58] LABS: Absolute Lymphocyte Count 1.92 X10^3/uL (0.83-4.51); Absolute Neutrophil Count 8.1 X10^3/uL (2.0-7.7); Basophil# 0.06 X10^3/uL; Basophil% 0.5 % (0-1); Eosinophil# 0.11 X10^3/uL; Hematocrit 46.4 % (40-54); Hemoglobin 15.8 g/dL (13.0-16.5); Lymphocyte # 1.92 X10^3/ul (4.0); Lymphocyte % 17.4 % (19-41); Mean Corp Hgb Conc 34.1 g/dL (32-36); Mean Corpuscular Hgb 32.2 pg (27.0-32.0); Mean Corpuscular Volume 94.5 fL (80-94); Mean Platelet Vol. 9.1 fl (6.2-12.0); Monocyte% 7.3 % (0-10); NRBC Flagged by Analyzer 0 % (0-5); Neutrophil # 8.07 X10^3/uL (2.7-7.7); Neutrophil % 73.3 % (47-70); Platelet Count 353 K/mm3 (150-450); RBC Distribution Width CV 11.9 % (11.6-14.6); RBC Distribution Width SD 41.7 fl (35.1-43.9); Red Blood Count 4.91 M/mm3 (4.6-6.2)
[2020-06-12 13:09] LABS: ALB/GLOB Ratio 1.1 RATIO (0.9-2.4); AST(SGOT) 20 U/L (15-37); Alanine Aminotransfer ALT/SGPT 35 U/L (16-61); Albumin, Serum 4.1 g/dL (3.2-5.0); Alkaline Phosphatase 88 U/L (45-117); Anion Gap 7 (5-15); BUN 14 mg/dL (7-18); BUN/Creat Ratio 10.9 RATIO (10-20); Calcium,Total 8.9 mg/dL (8.5-10.1); Chloride 104 mmol/L (98-107); Creatinine, Serum 1.29 mg/dL (0.70-1.30); EST Glomerular Filtration Rate 63 mL/min (>60); Est Glom Filt Rate - Afr Amer 76 mL/min (>60); Globulin 3.7 g/dL (2.2-4.2); Glucose 79 mg/dL (74-106); Lipase 113 U/L (73-393); Potassium 4.1 mmol/L (3.5-5.1); Protein, Total 7.8 g/dL (6.4-8.2); Sodium Level 136 mmol/L (136-145)
--- NOTE | 2020-06-12 13:44 | ED.VISSUMM ---
- ER Visit Summary Date of Service: 06/12/20 Chief Complaint: Abdominal pain History of Present Illness: The patient is a 49 M with left upper quadrant abdominal pain increasing over the past 3 days. Pain is severe. Nothing seemed to bring this on. Nothing seems to make it worse. Associated with nausea. He had similar symptoms in the past with pancreatitis which was secondary to alcohol use. He does still drink alcohol, but has not been using heavily. History of smoking, cocaine use, THC use. Physical Examination: Afebrile and vital signs unremarkable. Patient has left upper quadrant tenderness without guarding or rebound. Otherwise his exam is unremarkable. No jaundice. Heart and lungs unremarkable. Test Results: CBC, CMP, lipase unremarkable. CT pending. Emergency Department Course and Treatment: Patient treated with fluids, morphine, Zofran while awaiting results. CBC, CMP, lipase unremarkable. CT showed bilateral atelectasis but nothing acute. Patient was feeling better on reevaluation. I suspect he have gastritis or an ulcer. He has left upper quadrant pain and an unremarkable work-up so far. We will treat with antacids and nausea medicine. Follow-up with primary care or return if worse. Treatment Plan: As above Disposition: Discharge Impression: Left upper quadrant abdominal pain This note was generated with [employer] dictation software. It may contain incorrect words, spelling, and punctuation that were not noted in review of the chart prior to signing ED Disposition - Plan for ED Patient: Referrals: Care Physician,No Primary [Primary Care Provider] -
[2020-06-12] MEDS: Ondansetron 4 MG/2 ML Vial IV (14:08)
[2020-06-12] MEDS: 0.9% Normal Saline 1,000 ML 1000 ML IV (14:09)
[2020-06-12] MEDS: Morphine 4 MG/ML Syringe IV (14:09)
--- NOTE | 2020-06-12 14:31 | ED.DEP ---
ED Disposition - Plan for ED Patient: Instructions: Abdominal Pain Prescriptions: Famotidine [Pepcid] 20 mg PO BID #28 tab Prescription Printed Ondansetron [Zofran Odt] 4 mg PO Q8H PRN PRN #10 tab PRN Reason: Nausea Prescription Printed Referrals: Radha Marroquin [NON-STAFF] -
[2020-06-12 14:41] VITALS: BP 138/57; PULSE 84; RESP 16; O2SAT 97
== END 2020-06-12 14:44 | disposition home or self-care (01) ==
LOC: ED 13:19
PROVIDERS: Emergency Provider Emergency Medicine
DX: R10.12 Left upper quadrant pain (principal); Z87.19 Personal history of other diseases of the digestive system; Z87.891 Personal history of nicotine dependence
CPT/HCPCS: 74177; 80053; 83690; 85025; 96361; 96374; 96375; 99284; J7030; Q9967; A4216; J2405

== ENCOUNTER 2021-06-22 16:33 | Outpatient (CLI) | payer MEDICAID, SELFPAY ==
[2021-06-22 17:15] LABS: Absolute Lymphocyte Count 1.85 X10^3/uL (0.83-4.51); Absolute Neutrophil Count 4.9 X10^3/uL (2.0-7.7); Basophil# 0.07 X10^3/uL; Basophil% 0.9 % (0-1); Eosinophil# 0.15 X10^3/uL; Hematocrit 43.3 % (40-54); Hemoglobin 14.9 g/dL (13.0-16.5); Lymphocyte # 1.85 X10^3/ul (0.83-4.51); Lymphocyte % 24.4 % (19-41); Mean Corp Hgb Conc 34.4 g/dL (32-36); Mean Corpuscular Hgb 32.3 pg (27.0-32.0); Mean Corpuscular Volume 93.7 fL (80-94); Mean Platelet Vol. 9.7 fl (6.2-12.0); Monocyte# 0.56 X10^3/uL; Monocyte% 7.4 % (0-10); NRBC Flagged by Analyzer 0 % (0-5); Neutrophil # 4.92 X10^3/uL (2.7-7.7); Neutrophil % 64.9 % (47-70); Platelet Count 346 K/mm3 (150-450); RBC Distribution Width CV 12.3 % (11.6-14.6); RBC Distribution Width SD 42.3 fl (35.1-43.9); Red Blood Count 4.62 M/mm3 (4.6-6.2); White Blood Count 7.6 K/mm3 (4.4-11.0)
[2021-06-22 18:35] LABS: AST(SGOT) 21 U/L (15-37); Alanine Aminotransfer ALT/SGPT 36 U/L (16-61); Albumin, Serum 3.7 g/dL (3.2-5.0); Alkaline Phosphatase 87 U/L (45-117); Anion Gap 3 (5-15); BUN 12 mg/dL (7-18); BUN/Creat Ratio 10.4 RATIO (10-20); Calcium,Total 8.4 mg/dL (8.5-10.1); Chloride 107 mmol/L (98-107); Creatinine, Serum 1.15 mg/dL (0.70-1.30); EST Glomerular Filtration Rate 71 mL/min (>60); Est Glom Filt Rate - Afr Amer 86 mL/min (>60); Globulin 3.8 g/dL (2.2-4.2); Glucose 98 mg/dL (74-106); Potassium 4.5 mmol/L (3.5-5.1); Protein, Total 7.5 g/dL (6.4-8.2); Sodium Level 138 mmol/L (136-145); Thyroid Stim Hormone (TSH) 2.17 uIU/mL (0.358-3.74)
[2021-06-23 09:01] LABS: Hepatitis C Antibody Non-Reactive (Nonreactive)
== END 2021-06-22 23:59 | disposition home or self-care (01) ==
LOC: POLAB3 16:35
PROVIDERS: PCP Family Medicine Geriatric Medicine; Visit Provider Family Medicine Geriatric Medicine
DX: R53.83 Other fatigue (principal); Z13.89 Encounter for screening for other disorder
CPT/HCPCS: 36415; 80053; 84443; 85025; 86803

== ENCOUNTER 2021-08-14 15:32 | Emergency (ER) | payer OTHER, MEDICAID, SELFPAY ==
[2021-08-14 15:32] VITALS: BP 140/82; PULSE 48; RESP 16; TEMP 36.2; O2SAT 99; BMI 27.8
--- NOTE | 2021-08-14 15:45 | RAD_ITS ---
STUDY: XR Hand Min 3 Views REASON FOR EXAM: Male, 51 years old. PAIN PT STATES WAS CARRYING THINGS THROUGH A DOOR JAM AND HIS RIGHT HAND GOT SMASHED. HX FRACTURE TO HAND AND WRIST TECHNIQUE: XR Hand Min 3 Views RIGHT COMPARISON: None. FINDINGS: Normal radiocarpal articulation. Normal distal radioulnar joint. Prior surgical change of the carpal bones. Normal carpal articulations Normal carpometacarpal articulation of the thumb. Normal second through fifth carpometacarpal joints. Healed fracture of the fourth and fifth metacarpi. Normal metacarpophalangeal joint of the thumb. Normal interphalangeal joint of the thumb. Normal proximal and distal phalanges of the thumb. Normal metacarpophalangeal joints of the second through fifth fingers. Normal proximal and distal interphalangeal joints of the second through fifth fingers. Normal phalanges of the second through fifth fingers. The soft tissue structures are unremarkable. RAD/Hand Min 3 Views IMPRESSION: Healed fracture of the fourth and fifth metacarpi. Electronically Signed: Luis Owens MD at 15:57 EDT ,
--- NOTE | 2021-08-14 15:53 | EDS_ITS ---
HPI History of Present Illness Chief Complaint: Upper Extremity Injury Narrative Narrative: Patient presents with injury to his right hand that he sustained approximately 2-1/2 hours ago. He is left-hand dominant. He states that he was moving furniture with a juan, and his hand was crushed between the door jamb and the juan. When he got back for lunch approximately 2 hours ago, he noticed his right hand was bruised and swollen mainly along the fifth metacarpal. He has throbbing pain. He denies other injury. [facility] Medical History (Updated 08/14/21 @ 16:15 by Asad Kaufman MD) Surgical screw in right hand Home Medications famotidine 20 mg PO BID #28 tab 06/12/20 [Rx Last Taken Unknown] ondansetron 4 mg PO Q8H PRN PRN #10 tab 06/12/20 [Rx Last Taken Unknown] oxcarbazepine 300 mg PO TID 06/12/20 [History Last Taken Unknown] quetiapine 100 mg PO QHS 06/12/20 [History Last Taken Unknown] Allergy/AdvReac Type Severity Reaction Status Date / Time No Known Allergies Allergy Verified 08/14/21 15:34 Surgical History History of back surgery Social History Smoking Status: Current every day smoker tobacco type: cigarettes Tobacco: How many years used: 10 alcohol intake: never what type of physical activity do you participate in: none ROS ROS ED ROS Narrative Constitutional: No fever, no chills. HEENT: No sore throat. No neck pain. No loss of vision. No rhinorrhea. Cardiovascular: No chest pain. No palpitations. No pedal edema. Respiratory: No cough, no shortness of breath. Abdominal: No abdominal pain. No nausea. No vomiting. Genitourinary: No dysuria. No hematuria. Musculoskeletal: No myalgias. Right hand pain, swelling, and bruising. Neurologic: No headaches. No dizziness. No lightheadedness. Skin: No rash. No change in color. Psychiatric: No depression. No anxiety. EXAM Physical Exam Narrative Exam Narrative: Afebrile. Vital signs noted. HEENT: Normocephalic. Atraumatic. PERRL, EOMI. Neck soft and supple. No point tenderness or step off. Cardiovascular: Regular rate and rhythm. No murmurs, rubs, or gallops appreciated. Respiratory: No tachypnea. Lungs clear to auscultation bilaterally. Gastrointestinal: Abdomen soft, nontender, with normoactive bowel sounds. No rebound or guarding. Neurological: Awake. Alert. Nonfocal, nonlateralizing. Skin: No rash. Normal color. No pallor. Musculoskeletal: No pedal edema. Positive swelling with ecchymosis at base of fifth metacarpal. Full range of motion of wrist. Good capillary refill distally. Range of motion of fifth digit limited secondary to pain. Palpable radial pulse.. Const Vital Signs: 08/14/21 15:32 Temperature 97.2 F L Temperature Source Temporal Pulse Rate 48 L Respiratory Rate 16 Blood Pressure 140/82 H Blood Pressure Mean 101 Pulse Ox 99 Oxygen Delivery Method Room Air MDM MDM MDM Narrative Medical decision making narrative: Patient was administered ibuprofen 800 mg orally and given an ice pack to apply to his hand. X-rays were obtained of the right hand and 3 views. My interpretation of the x-ray shows a healed distal fifth metacarpal fracture. Radiology confirms this. At this point in time, he will take [id number] analgesics as needed. He was placed in an Andre wrap and told to ice and elevate his right hand. [facility] was [facility] to the [facility]. He will be given off work today, the day of his injury and told to return to work tomorrow with the following accommodations for the next week with limited use of his right hand/arm. I feel he can be discharged safely home with follow- up. Return instructions reviewed. Disposition is discharged home in stable condition. Discharge Plan Triage Chief Complaint: Upper Extremity Injury ED Provider: Asad Kaufman Dx/Rx/DC Orders Clinical Impression: Contusion of hand, right Instructions: ED Hand Contusion Prescriptions: No Action oxcarbazepine 300 MG tablet 300 mg PO TID RF: 0 quetiapine 100 MG tablet 100 mg PO QHS RF: 0 famotidine 20 MG tablet 20 mg PO BID Qty: 28 RF: 0 ondansetron 4 MG tablet 4 mg PO Q8H PRN PRN (Reason: Nausea) Qty: 10 RF: 0 Stand Alone Forms: Work Status Form Primary Care Provider: Hemant Lozada Chi Referrals: Hemant Lozada Chi, MD [Primary Care Provider] - [facility] [NON-STAFF] - 3-5 Days
[2021-08-14 16:03] VITALS: BP 133/67; PULSE 57; RESP 14; TEMP 36.8; O2SAT 96
[2021-08-14] MEDS: Ibuprofen 400 MG Tablet 800 MG PO (16:05)
[2021-08-14 16:16] VITALS: BP 142/70; PULSE 49; O2SAT 95
--- NOTE | 2021-08-15 01:33 | ED.RN ---
GOT INTO PATIENTS CHART TO LOOK UP FROI INFORMATION FOR WORKERS COMP.
== END 2021-08-14 16:45 | disposition home or self-care (01) ==
PROVIDERS: Emergency Provider Emergency Medicine; PCP Family Medicine Geriatric Medicine; Visit Provider Emergency Medicine
DX: S60.221A Contusion of right hand, initial encounter (principal); F17.210 Nicotine dependence, cigarettes, uncomplicated; W23.0XXA Caught, crushed, jammed, or pinched between moving objects, initial encounter
CPT/HCPCS: 73130; 99283

== ENCOUNTER → 2022-02-04 | Outpatient (CLI) | payer MEDICAID, SELFPAY ==
--- NOTE | 2022-02-04 16:30 | RAD_ITS ---
STUDY: X-RAY - LEFT HAND REASON FOR EXAM: Male, 51 years old. injury TECHNIQUE: 3 view(s) of the hand. COMPARISON: None. FINDINGS: Normal radiocarpal articulation. Normal distal radioulnar joint. Normal visualized carpal bones. Normal carpal articulations Normal carpometacarpal articulation of the thumb. Normal second through fifth carpometacarpal joints. Deformity of the fifth metacarpal head likely due to old trauma. Normal metacarpophalangeal joint of the thumb. Normal interphalangeal joint of the thumb. Normal proximal and distal phalanges of the thumb. Normal metacarpophalangeal joints of the second through fifth fingers. Normal proximal and distal interphalangeal joints of the second through fifth fingers. Normal phalanges of the second through fifth fingers. The soft tissue structures are unremarkable. RAD/Hand Min 3 Views IMPRESSION: Old posttraumatic deformity of the fifth metacarpal head. No acute fracture or dislocation Electronically Signed: Nehemias Chaudhary MD at 18:32 EDT ,
--- NOTE | 2022-02-04 17:12 | RAD_ITS ---
STUDY: X-RAY - RIGHT ELBOW REASON FOR EXAM: Male, 51 years old. injury TECHNIQUE: 3 view(s) of the elbow. COMPARISON: None. FINDINGS: Normal visualized humerus, and radius. There is questionable acute hairline fracture of the coronoid process of the ulna only seen on the lateral projection.. Normal radiocapitellar and ulnotrochlear articulations. The soft tissue structures are unremarkable. RAD/Elbow min 3 Views IMPRESSION: Questionable acute hairline fracture of the coronoid process of the ulna.. Electronically Signed: Nehemias Chaudhary MD at 18:30 EDT ,
--- NOTE | 2022-02-04 17:16 | RAD_ITS ---
STUDY: X-RAY - LEFT WRIST REASON FOR EXAM: Male, 51 years old. injury TECHNIQUE: 3 view(s) of the wrist were obtained. COMPARISON: None. FINDINGS: Normal visualized distal radius and ulna. Normal radiocarpal articulation. Normal distal radioulnar articulation. Normal carpal bones. Normal carpal articulations. Normal carpometacarpal articulation of the thumb. Normal second through fifth carpometacarpal articulations. Normal visualized metacarpal bones. The soft tissue structures are unremarkable. RAD/Wrist min 3 Views IMPRESSION: Normal x-ray examination of the wrist. Electronically Signed: Nehemias Chaudhary MD at 18:32 EDT ,
== END | disposition home or self-care (01) ==
PROVIDERS: PCP Family Medicine Geriatric Medicine; Referring Provider Physician Assistant; Visit Provider Physician Assistant
DX: S59.901A Unspecified injury of right elbow, initial encounter (principal); S69.92XA Unspecified injury of left wrist, hand and finger(s), initial encounter
CPT/HCPCS: 73080; 73110; 73130

== ENCOUNTER 2022-12-22 12:03 | Observation (INO) | payer MEDICAID, SELFPAY ==
[2022-12-22] VITALS (9 sets, daily range): BP systolic 118–139; BP diastolic 71–90; PULSE 63–84; RESP 14–21; TEMP 36.1–36.7; O2SAT 95–100; BMI 27.8; BMI 27.3; BMI 26.6
--- NOTE | 2022-12-22 12:15 | CT_ITS ---
STUDY: CT HEAD STROKE PROTOCOL W/O CONTRAST INJECTION REASON FOR EXAM: Male, 52 years old. Neuro deficit, acute, stroke suspected RADIATION DOSAGE (If Supplied By Facility): CTDIvol = ( 44.99 ) mGy, DLP = ( 866.41 ) mGycm TECHNIQUE: Transaxial CT imaging of the brain was performed without administration of intravenous contrast material. Individualized dose optimization techniques were used for this CT. COMPARISON: No relevant priors. FINDINGS: Normal soft tissue structures. Normal calvarium. Normal size ventricles and extra-axial spaces for the patient''s age. Normal white matter tracts of the cerebral hemispheres. Normal basal ganglia and thalami. Normal brainstem. Normal cerebellum. There is no intracranial hemorrhage. There are no findings of an acute ischemic infarction. Opacification of the left maxillary sinus. Mild mucosal thickening at the base of the right maxillary sinus. ASPECT score: 10 CT/STROKE Brain/Head without Cont IMPRESSION: Normal unenhanced CT scan of the brain. Opacification of the left maxillary sinus. N.B. : The above Results were Read Back by Emery Dunham MD to Dr French MD, and understanding confirmed on 12/22/2022 12:46:47 (ET). Electronically Signed: Emery Dunham MD at 12:47 EDT ,
--- NOTE | 2022-12-22 12:15 | EKG12_ITS ---
Test Reason : NEURO Blood Pressure : / mmHG Vent. Rate : 078 BPM Atrial Rate : 078 BPM P-R Int : 170 ms QRS Dur : 090 ms QT Int : 420 ms P-R-T Axes : 072 061 060 degrees QTc Int : 478 ms Sinus rhythm with frequent Premature ventricular complexes Otherwise normal ECG Confirmed by RANGEL GARNER, OMAR ([id number]), medical transcription editor ANTON BYRD ([id number]) on 12/27/2022 8:14:15 AM Referred By: Confirmed By:JOHN MULTANI MD
--- NOTE | 2022-12-22 12:17 | EX.ED.DYSGE1 ---
HPI History of Present Illness Chief Complaint: Neuro S/Sx Narrative Narrative: Patient presents to the ED with difficulty finding words and getting words out since sometime yesterday, it is hard to tell when but father who is with him noticed the symptoms greater than 24 hours ago. No weakness, no paresthesias, patient feels like there is something wrong with the left side of his tongue and cheek but no facial droop or sensory deficit PFSH PFSH Medical History (Updated 12/22/22 @ 13:[address] Reji Braswell MD) Adjustment disorder with mixed anxiety and depressed mood Alcohol abuse Back problem Cannabis abuse Contusion of right elbow GERD (gastroesophageal reflux disease) History of Leach's palsy Left wrist sprain Pancreatitis Sprain of left hand Stimulant use disorder Stroke Surgical screw in right hand Vision abnormalities Home Medications famotidine 20 mg tablet 20 mg PO BID #28 tabs 06/12/20 [Rx Last Taken Unknown] sildenafil 50 mg tablet 50 mg PO .prn 04/27/22 [History Last Taken Unknown] naproxen sodium 220 mg capsule (Aleve) 220 mg PO BID PRN pain 12/22/22 [History Last Taken Unknown] Allergy/AdvReac Type Severity Reaction Status Date / Time No Known Allergies Allergy Verified 12/22/22 12:16 Family History Other Anxiety Arthritis CVA (cerebral vascular accident) Cancer Colon cancer Depression Diabetes Hypertension Kidney disease Liver disease Mental disorder Seizures Thyroid disorder Surgical History History of back surgery Social History (Updated 12/22/22 @ 12:13 by Christine Tony) household members: family Smoking Status: Current every day smoker tobacco type: cigarettes Tobacco: How many years used: 10 alcohol intake: never substance use type: other details: marked yes on illegal drugs what type of physical activity do you participate in: walking ROS ROS ED ROS Narrative Past medical history: Reviewed Medications: Reviewed Social history: Noncontributory Review of systems: All systems negative except as indicated General: No fever Eyes: No visual changes ENT: No upper airway congestion, normal voice Neck: No neck pain Cardiovascular: No chest pain Respiratory: No shortness of breath or cough Gastrointestinal: No abdominal pain, nausea vomiting or diarrhea Genitourinary: No dysuria Musculoskeletal: Denies myalgias no difficulty with ambulation Skin: No rash Neurological: As in HPI, otherwise no memory loss, confusion or any focal weakness Psych: No recent behavioral changes Hematologic: No easy bleeding or easy bruising EXAM Physical Exam Narrative Exam Narrative: Physical exam General: Well nourished, Well developed, No Acute Distress Head: Normocephalic, Atraumatic Eyes: Conjunctiva not pale ENT: Moist mucous membranes Neck: Supple, Nontender, No lymphadenopathy Cardiovascular: Regular rate, Regular rhythm Respiratory: No distress, CTA bilaterally Abdomen: Soft, Nontender, Nondistended Back: Nontender, Normal Inspection. Negative for: CVA tenderness Extremities: Nontender, No edema Skin: Normal color, No rash Neurological: Alert, Normal Strength, Normal Sensation. Normal speech no dysarthria, no obvious aphasia, he talks slower, but uses appropriate words no other speech difficulty. Psychological: Normal affect Const Vital Signs: 12/22/22 12:04 12/22/22 12:18 12/22/22 12:19 Temperature 97.0 F L Temperature Source Temporal Pulse Rate 67 84 Respiratory Rate 14 21 H Blood Pressure 129/81 H 135/79 H Blood Pressure Mean 97 97 Pulse Ox 99 98 95 Oxygen Delivery Method Room Air Room Air Room Air 12/22/22 13:03 Temperature Temperature Source Pulse Rate 74 Respiratory Rate 20 H Blood Pressure 118/80 Blood Pressure Mean 92 Pulse Ox Oxygen Delivery Method MDM MDM MDM Narrative Medical decision making narrative: I discussed with family members who are in the room, daughter is well as father, they both state that his speech is off. I do not appreciate obvious aphasia however he has had a TIA in the past and likely will benefit from an MRI therefore I will admit. I have ruled out any kind of intracranial bleed, I have ruled out any kind of electrolyte abnormalities or anything infectious. Talk screen did show methamphetamines, MDMA as well as THC, he does not know about any other drugs, but he admits to using marijuana he does not know if anything could have been laced. Regardless he did not smoke marijuana today any symptoms started last night, I am reluctant to diagnose his speech on drugs without an MRI. Lab Data Labs: Laboratory Results - last 24 hr 12/22/22 12/22/22 12/22/22 12:14 12:15 12:26 WBC 10.3 RBC 4.54 L Hgb 14.5 Hct 43.1 MCV 94.9 H MCH 31.9 MCHC 33.6 RDW Std Deviation 42.8 RDW Coeff of Frank 12.2 Plt Count 312 MPV 9.7 Immature Gran % (Auto) 0.200 Neut % (Auto) 71.3 H Lymph % (Auto) 20.7 Jackson % (Auto) 6.2 Eos % (Auto) 0.9 Baso % (Auto) 0.7 Absolute Neuts (auto) 7.4 Absolute Lymphs (auto) 2.14 Nucleated RBC % 0 PT 13.2 INR 1.0 APTT 31.2 Sodium 140 Potassium 3.7 Chloride 107 Carbon Dioxide 28.0 Anion Gap 5 BUN 15 Creatinine 1.21 Estim Creat Clear Calc 90.00 Est GFR (MDRD) Af Amer 81 Est GFR (MDRD) Non-Af 67 BUN/Creatinine Ratio 12.4 Glucose 113 H Calcium 9.0 Troponin I High Sens 12 Urine Opiates Screen NEGATIVE Urine Methadone Screen NEGATIVE Ur Barbiturates Screen NEGATIVE Ur Phencyclidine Scrn NEGATIVE Ur Amphetamines Screen POSITIVE H MDMA (Ecstasy) Screen POSITIVE H U Benzodiazepines Scrn NEGATIVE Urine Cocaine Screen NEGATIVE U Cannabinoids Screen POSITIVE H Ur Drug Screen Comment POC Glucose 113 H Radiography Diagnostic Testing: Clinical Impression(s) from Imaging Studies Brain CT 12/22/22 12:15 IMPRESSION: Normal unenhanced CT scan of the brain. Opacification of the left maxillary sinus. N.B. : The above Results were Read Back by Emery Dunham MD to Dr French MD, and understanding confirmed on 12/22/2022 12:46:47 (ET). Electronically Signed: Emery Dunham MD at 12:47 EDT , ADDENDUM: 12/22/22 1257 IMPRESSION: Normal unenhanced CT scan of the brain. Opacification of the left maxillary sinus. N.B. : The above Results were Read Back by Emery Dunham MD to Dr French MD, and understanding confirmed on 12/22/2022 12:46:47 (ET). Electronically Signed: Emery Dunham MD at 12:47 EDT , Chest X-Ray 12/22/22 12:32 IMPRESSION: Hyperinflation. No acute abnormality is seen. Electronically Signed: Emery Dunham MD at 12:53 EDT , Chest x-ray read by me as normal Rhythm Strip Rhythm Strip: Sinus Rhythm Rate: 78 Ectopy: PVC(s) EKG Initial EKG: Comments: Sinus rhythm with a rate of 78. PVCs are present otherwise no ischemic changes. Interpreted by emergency doctor Discharge Plan Dx/Rx/DC Orders Clinical Impression: Cannabis abuse, Difficulty with speech Disposition Disposition: Acute Care Hospital [facility] NIHSS NIHSS 1a. Level of Consciousness: Alert; keenly responsive 1b. LOC Questions: Answers BOTH questions correctly. 1c. LOC Commands: Performs both tasks correctly. 2. Best Gaze: Normal 3. Visual: No visual loss 4. Facial Palsy: Normal symmetrical movements 5a. Left Arm: No drift; arm holds 90 (or 45) degrees for full 10 seconds 5b. Right Arm: No drift; arm holds 90 (or 45) degrees for full 10 seconds 6a. Left Leg: No drift; leg holds 30-degree position for full 5 seconds 6b. Right Leg: No drift; leg holds 30-degree position for full 5 seconds 7. Limb Ataxia: Absent 8. Sensory: Normal; no sensory loss 9. Best Language: No aphasia; normal 10. Dysarthria: Normal 11. Extinction and Inattention: No abnormality Total: 0
[2022-12-22 12:25] LABS: Absolute Lymphocyte Count 2.14 X10^3/uL (0.83-4.51); Absolute Neutrophil Count 7.4 X10^3/uL (2.0-7.7); Basophil# 0.07 X10^3/uL; Basophil% 0.7 % (0-1); Eosinophil# 0.09 X10^3/uL; Eosinophils% 0.9 % (0-5); Hematocrit 43.1 % (40-54); Hemoglobin 14.5 g/dL (13.0-16.5); Lymphocyte # 2.14 X10^3/ul (0.83-4.51); Lymphocyte % 20.7 % (19-41); Mean Corp Hgb Conc 33.6 g/dL (32-36); Mean Corpuscular Hgb 31.9 pg (27.0-32.0); Mean Corpuscular Volume 94.9 fL (80-94); Mean Platelet Vol. 9.7 fl (6.2-12.0); Monocyte# 0.64 X10^3/uL; Monocyte% 6.2 % (0-10); NRBC Flagged by Analyzer 0 % (0-5); Neutrophil # 7.37 X10^3/uL (2.7-7.7); Neutrophil % 71.3 % (47-70); Platelet Count 312 K/mm3 (150-450); RBC Distribution Width CV 12.2 % (11.6-14.6); RBC Distribution Width SD 42.8 fl (35.1-43.9); Red Blood Count 4.54 M/mm3 (4.6-6.2); White Blood Count 10.3 K/mm3 (4.4-11.0)
[2022-12-22 12:32] LABS: Bedside Glucose 113 mg/dL (74-106)
--- NOTE | 2022-12-22 12:32 | RAD_ITS ---
STUDY: X-RAY CHEST REASON FOR EXAM: Male, 52 years old. Neuro deficit, acute, stroke suspected TECHNIQUE: Single AP portable view of the chest. COMPARISON: Comparison is made with prior study dated January 19, 2020. FINDINGS: EKG electrodes are seen. There is hyperinflation of the lungs consistent with chronic obstructive lung disease (COPD). There is no demonstrated pleural abnormality. Normal size heart. Normal mediastinum and juan david. Normal visualized pulmonary arteries. Normal visualized aortic arch and descending thoracic aorta. Normal visualized thoracic spine. Normal visualized ribs, clavicles, and shoulders. There is no demonstrated abnormality of the visualized soft tissue structures of the upper abdomen. RAD/Chest 1 View IMPRESSION: Hyperinflation. No acute abnormality is seen. Electronically Signed: Emery Dunham MD at 12:53 EDT ,
[2022-12-22 12:34] LABS: Partial Thromboplast Time 31.2 Seconds (24.1-36.2); Prothrombin Time (Protime)PT. 13.2 SECONDS (11.7-14.9)
[2022-12-22 12:44] LABS: Anion Gap 5 (5-15); BUN 15 mg/dL (7-18); BUN/Creat Ratio 12.4 RATIO (10-20); Chloride 107 mmol/L (98-107); Creatinine, Serum 1.21 mg/dL (0.70-1.30); EST Glomerular Filtration Rate 67 mL/min (>60); Est Glom Filt Rate - Afr Amer 81 mL/min (>60); Glucose 113 mg/dL (74-106); Potassium 3.7 mmol/L (3.5-5.1); Sodium Level 140 mmol/L (136-145); Troponin-I HS 12 pg/mL (3.0-78.0)
[2022-12-22 13:05] LABS: Amphetamine Urine VISTA POSITIVE (<1000 ng/mL); Barbiturate Urine VISTA NEGATIVE (< 200 ng/mL); Benzodiazepine Urine VISTA NEGATIVE (< 200 ng/mL); Cocaine Urine VISTA NEGATIVE (< 300 ng/mL); Ecstacy Urine VISTA POSITIVE (< 500 ng/mL); Methadone Urine VISTA NEGATIVE (< 300 ng/mL); PCP Urine VISTA NEGATIVE (< 25 ng/mL); THC Urine VISTA POSITIVE (< 50 ng/mL); Vista UDS pH Range 5
--- NOTE | 2022-12-22 13:27 | NURSING ---
PCU TERELETSKY SPEECH DIFFICULTY
--- NOTE | 2022-12-22 14:19 | ECHOD_ITS ---
Reason For Study: TIA/CVA Procedure This was a 2D Doppler, Color Flow transthoracic echocardiogram. Exam performed portable in patient room. Left Ventricle Normal LV size. The estimated ejection fraction is 60 %. Normal diastology for age. No regional wall motion abnormalities noted. Right Ventricle Normal RV size. Normal systolic function. Atria Normal left atrium. Normal right atrium. No doppler evidence for ASD. Mitral Valve There is no mitral valve stenosis. Trivial mitral valve insufficiency. Tricuspid Valve There is no tricuspid stenosis. Unable to estimate RV systolic pressure due to inadequate jet, pulmonary artery pressure probably normal. Aortic Valve Trisinus/trileaflet aortic valve. There is no aortic stenosis. No aortic valve insufficiency. Pulmonic Valve There is no pulmonic valvular stenosis. No pulmonic valve insufficiency. Great Vessels Normal aortic root. Pericardium/Pleural No pericardial effusion. Medication Performed a rapid injection of agitated mix of 9 cc saline and 1cc air to assess for atrial septal defect. MMode/2D Measurements & Calculations LVIDd: 5.8 cm IVSd: 1.1 cm Ao root diam: 3.3 cm LVIDs: 4.3 cm LVPWd: 0.88 cm RVDd: 3.2 cm FS: 26.8 % LAV(MOD-bp): 56.9 ml LVAd ap4: 36.2 cm2 LVAd ap2: 35.3 cm2 LAV(MOD-bp) Indexed: 23.9 ml/m2 LVLd ap4: 8.6 cm LVLd ap2: 8.7 cm LAV(MOD-sp2): 54.6 ml EDV(MOD-sp4): 132.7 ml EDV(MOD-sp2): 119.6 ml LAV(MOD-sp4): 53.7 ml EDV(sp4-el): 128.7 ml EDV(sp2-el): 122.4 ml LVAs ap4: 21.0 cm2 LVAs ap2: 20.5 cm2 LVLs ap4: 7.3 cm LVLs ap2: 7.2 cm ESV(MOD-sp4): 56.9 ml ESV(MOD-sp2): 50.3 ml ESV(sp4-el): 51.0 ml ESV(sp2-el): 49.7 ml EF(MOD-sp4): 57.1 % EF(MOD-sp2): 57.9 % EF(sp4-el): 60.4 % SV(MOD-sp4): 75.8 ml SV(MOD-sp2): 69.3 ml SV(sp4-el): 77.7 ml LA A4 area: 17.8 cm2 LA dimension(2D): 4.0 cm RA A4 area: 14.2 cm2 Time Measurements MV dec time: 0.22 sec Doppler Measurements & Calculations MV E max bakari: 84.3 cm/sec Lat Peak E' Bakari: 11.4 cm/sec Med Peak E' Bakari: 10.6 cm/sec MV A max bakari: 75.4 cm/sec E/E' lat: 7.4 E/E' med: 8.0 MV E/A: 1.1 MV V2 max: 128.6 cm/sec MV P1/2t max bakari: 128.6 cm/sec Ao V2 max: 126.7 cm/sec MV max P.6 mmHg MV P1/2t: 84.9 msec Ao max P.4 mmHg MV V2 mean: 63.2 cm/sec Ao V2 mean: 100.3 cm/sec MV mean P.9 mmHg MV dec slope: 443.5 cm/sec2 Ao mean P.2 mmHg MV V2 VTI: 32.8 cm MVA(P1/2t): 2.6 cm2 Ao V2 VTI: 30.9 cm AV (velocity ratio): 0.92 LV V1 max: 121.8 cm/sec PA V2 max: 147.1 cm/sec LV V1 max P.9 mmHg PA V2 mean: 102.5 cm/sec LV V1 mean P.3 mmHg LV V1 mean: 87.3 cm/sec LV V1 VTI: 28.4 cm ECHO/Echo Complete Interpretation Summary The estimated ejection fraction is 60 %. Trivial mitral valve insufficiency. Ordering Physician: Logan Aparicio Referring Physician: CLAIRE PCP Performed By: Monserrat Hester, MOLLYCS, RVT
[2022-12-22 16:00] LABS: Cholesterol 153 mg/dL (200); High Density Lipoprotein 55 mg/dL; Triglycerides 53 mg/dL; Very Low Density Lipoprotein 11 mg/dL (5-40)
[2022-12-22] MEDS: Aspirin E.C. 81 MG Tablet PO (16:40)
--- NOTE | 2022-12-22 18:05 | HP.PCM.HOS_ITS ---
HPI - General General Date of Admission: 12/22/22 Date of Service: 12/22/22 Chief Complaint: Speech difficulties HPI Narrative DAVE REAVES, is a 52 M who presents to the emergency room at [facility] with complaints of difficulty with his speech since yesterday. Patient states he is able to speak sentences but he has to speak slowly, patient denies any focal motor weakness, he denies any visual disturbances, he denies any garbled speech. On evaluation in the emergency room, his NIH score was 0, labs were obtained which showed a normal CBC, chemistry profile was unremarkable, tox screen was positive for amphetamines, MDMA, and cannabinoids. Patient denies any ingestion of amphetamines or MDMA, he does state that he smokes marijuana on a daily basis. Patient had a CT of the brain which showed no evidence of hemorrhage or stroke, the left maxillary sinus was opacified. Patient will be placed in observation status on PCU, he will undergo an MRI of the brain to rule rule out stroke, he will be seen by speech therapy, NIH scores will be monitored. Patient will have an echocardiogram performed, this examiner noticed that he had PVCs on the monitor in the emergency room. [facility] Medical History Adjustment disorder with mixed anxiety and depressed mood Alcohol abuse Back problem Cannabis abuse Contusion of right elbow GERD (gastroesophageal reflux disease) History of Leach's palsy Left wrist sprain Pancreatitis Sprain of left hand Stimulant use disorder Stroke Surgical screw in right hand Vision abnormalities Home Medications famotidine 20 mg tablet 20 mg PO BID #28 tabs 06/12/20 [Rx Last Taken 12/21/22] sildenafil 50 mg tablet 50 mg PO .prn 04/27/22 [History Last Taken 12/19/22] naproxen sodium 220 mg capsule (Aleve) 220 mg PO BID PRN pain 12/22/22 [History Last Taken Unknown] Allergy/AdvReac Type Severity Reaction Status Date / Time No Known Allergies Allergy Verified 12/22/22 12:16 Family History Other Anxiety Arthritis CVA (cerebral vascular accident) Cancer Colon cancer Depression Diabetes Hypertension Kidney disease Liver disease Mental disorder Seizures Thyroid disorder Surgical History History of back surgery Social History (Updated 12/22/22 @ 16:04 by Aaliyah Jacobo) household members: family Smoking Status: Current every day smoker tobacco type: cigarettes Tobacco: How many years used: 10 alcohol intake: never substance use type: marijuana and other details: marked yes on illegal drugs what type of physical activity do you participate in: walking ROS Constitutional Constitutional: Denies anorexia, change in weight, fever(s), night sweats or weakness Eyes Eyes: Denies blurry vision, change in vision, discharge from eye(s) or eye pain Cardiovascular Cardiovascular: Denies chest pain, claudication, edema or palpitations Respiratory/Chest Respiratory/Chest: Denies cough, hemoptysis, shortness of breath at rest or shortness of breath with exertion Gastrointestinal Gastrointestinal: Denies abdominal pain, constipation, diarrhea, hematemesis, hematochezia, melena, nausea or vomiting Genitourinary Genitourinary: Denies dysuria, hematuria, urinary frequency, urinary hesitancy, urinary incontinence or urinary urgency Musculoskeletal Musculoskeletal: Denies back pain, joint pain, joint stiffness, joint swelling, myalgias or neck pain Neurologic Neurologic: Reports abnormal speech; Denies abnormal gait, dizziness, focal weakness, headache(s), loss of vision, numbness, other visual disturbances, paresthesias, syncope or tingling Psychiatric Psychiatric: Denies anxiety, cognitive impairment, depression, irritability, mood swings or suicidal ideation Endocrine Endocrinology: Denies change in body appearance, cold intolerance, excessive sweating, heat intolerance, polydipsia or polyuria Hematologic/Lymphatic Hematologic/Lymphatic: Denies none, anemia, easy bleeding, easy bruising or lymphadenopathy Allergic/Immunologic Allergic/Immunologic: Denies rhinitis, urticaria, eczemia or asthma Vital Signs Vital Signs Vital Signs: 12/22/22 12:04 12/22/22 12:18 12/22/22 12:19 Temperature 97.0 F L Temperature Source Temporal Pulse Rate 67 84 Respiratory Rate 14 21 H Respiratory Effort Respiratory Depth Respiratory Pattern Blood Pressure 129/81 H 135/79 H Blood Pressure Mean 97 97 Blood Pressure Source Blood Pressure Position Blood Pressure Location Pulse Ox 99 98 95 Oxygen Delivery Method Room Air Room Air Room Air 12/22/22 13:03 12/22/22 13:35 12/22/22 14:09 Temperature 98.1 F Temperature Source Temporal Pulse Rate 74 78 75 Respiratory Rate 20 H 19 H 14 Respiratory Effort Respiratory Depth Respiratory Pattern Blood Pressure 118/80 129/90 H 139/89 H Blood Pressure Mean 92 103 105 Blood Pressure Source Blood Pressure Position Blood Pressure Location Pulse Ox 96 Oxygen Delivery Method Room Air 12/22/22 15:36 12/22/22 15:48 Temperature 97.5 F L Temperature Source Oral Pulse Rate 67 Respiratory Rate 18 Respiratory Effort Normal Non-Labored Respiratory Depth Normal Respiratory Pattern Normal Blood Pressure 122/81 H Blood Pressure Mean 94 Blood Pressure Source Monitor Blood Pressure Position Semi-Fowlers Blood Pressure Location Left Arm Pulse Ox 100 Oxygen Delivery Method Room Air Room Air Weight Weight: 101.984 kg Body Mass Index (BMI) 26.6 Physical Exam Const alert, oriented x3, no apparent distress and healthy appearing General Appearance: cooperative, well kempt and well developed Orientation / Consciousness: awake, oriented to person, oriented to place and oriented to time HEENT normocephalic, head/scalp atraumatic, hearing grossly normal bilaterally and moist oral mucous membranes Eyes PERRL, EOMs intact bilaterally and conjunctivae normal Neck supple, no JVD, thyroid normal and no carotid bruits General: trachea midline Resp normal respiratory effort, no retractions, no use of accessory muscles and clear to auscultation bilaterally Auscultation: Negative for rales, rhonchi or wheezes Cardio regular rate, regular rhythm, S1 normal heart sound, S2 normal heart sound, no murmurs, no rub and no gallops GI normal to inspection, nondistended, normoactive bowel sounds, soft to palpation, non-tender and non-distended Extremity no clubbing, cyanosis or edema Skin no rashes or lesions noted General Skin Exam: no breakdown Neuro oriented x3, CN's II-XII intact bilaterally, moves all extremities, no focal motor deficits and no sensory deficits noted Neuro Narrative: Patient's speech is deliberate and slow, at times there is a slight slurring of some words, patient has no expressive aphasia Sensorium / Orientation: awake, alert, oriented to person, oriented to place and oriented to time Psych affect normal Results Lab / Micro Data 12/22/22 12:15 12/22/22 12:15 Labs: Laboratory Results - last 24 hr 12/22/22 12:14: POC Glucose 113 H 12/22/22 12:15: WBC 10.3, RBC 4.54 L, Hgb 14.5, Hct 43.1, MCV 94.9 H, MCH 31.9, MCHC 33.6, RDW Std Deviation 42.8, RDW Coeff of Frank 12.2, Plt Count 312, MPV 9.7, Immature Gran % (Auto) 0.200, Neut % (Auto) 71.3 H, Lymph % (Auto) 20.7, Holmes % (Auto) 6.2, Eos % (Auto) 0.9, Baso % (Auto) 0.7, Absolute Neuts (auto) 7.4, Absolute Lymphs (auto) 2.14, Nucleated RBC % 0, PT 13.2, INR 1.0, APTT 31.2, Sodium 140, Potassium 3.7, Chloride 107, Carbon Dioxide 28.0, Anion Gap 5, BUN 15, Creatinine 1.21, Estim Creat Clear Calc 90.00, Est GFR (MDRD) Af Amer 81, Est GFR (MDRD) Non-Af 67, BUN/Creatinine Ratio 12.4, Glucose 113 H, Calcium 9.0, Troponin I High Sens 12, Triglycerides 53, Cholesterol 153, LDL Cholesterol 87, VLDL Cholesterol 11, HDL Cholesterol 55 12/22/22 12:26: Urine Opiates Screen NEGATIVE, Urine Methadone Screen NEGATIVE, Ur Barbiturates Screen NEGATIVE, Ur Phencyclidine Scrn NEGATIVE, Ur Amphetamines Screen POSITIVE H, MDMA (Ecstasy) Screen POSITIVE H, U Benzodiazepines Scrn NEGATIVE, Urine Cocaine Screen NEGATIVE, U Cannabinoids Screen POSITIVE H, Ur Drug Screen Comment Rhythm Strip Rhythm Strip: Sinus Rhythm Rate: 78 Ectopy: PVC(s) Radiology Impression Brain CT 12/22/22 12:15 IMPRESSION: Normal unenhanced CT scan of the brain. Opacification of the left maxillary sinus. N.B. : The above Results were Read Back by Emery Dunham MD to Dr French MD, and understanding confirmed on 12/22/2022 12:46:47 (ET). Electronically Signed: Emery Dunham MD at 12:47 EDT , ADDENDUM: 12/22/22 1254 IMPRESSION: Normal unenhanced CT scan of the brain. Opacification of the left maxillary sinus. N.B. : The above Results were Read Back by Emery Dunham MD to Dr French MD, and understanding confirmed on 12/22/2022 12:46:47 (ET). Electronically Signed: Emery Dunham MD at 12:47 EDT , Chest X-Ray 12/22/22 12:32 IMPRESSION: Hyperinflation. No acute abnormality is seen. Electronically Signed: Emery Dunham MD at 12:53 EDT , Assessment & Plan Assessment/Plan (1) Difficulty with speech: PLAN: Plan 1. Speech difficulty-etiology unclear at this point, patient will be placed in observation status on PCU, he will have an MRI of the brain performed, patient will have an echocardiogram performed to rule out atrial septal defect. NIH scores will be monitored. #2 substance abuse-patient has a past history of substance abuse, again he states he only smokes marijuana presently, he was positive on his talk screen for MDMA and amphetamines however. #3 PVCs-I noticed on the patient's telemetry in the emergency room that he had frequent PVCs, again patient will have an echocardiogram performed. He will be monitored on telemetry on PCU. Total clinical time spent by myself addressing the patient's medical issues, reviewing all of his data, and collaborating with patient's care team: 40 kimberly huy Charges/Coding Visit Charges Inpatient E&M: 02340 Init Hosp L1
[2022-12-22] MEDS: Famotidine 20 MG Tablet PO (20:43)
[2022-12-22] MEDS: Naproxen 250 MG Tablet PO (20:43)
[2022-12-22] MEDS: Nicotine Polacrilex 2 MG GUM PO (23:57)
[2022-12-23 03:34] VITALS: BP 119/84; PULSE 55; RESP 16; TEMP 36.7; O2SAT 99
[2022-12-23 07:35] VITALS: BP 121/79; PULSE 56; RESP 18; TEMP 36.3; O2SAT 97
[2022-12-23] MEDS: Aspirin E.C. 81 MG Tablet PO (08:34)
[2022-12-23] MEDS: Ensure Plus High Protein 120 ML LIQUID PO ×2 (08:34→11:46)
[2022-12-23] MEDS: Famotidine 20 MG Tablet PO (08:34)
[2022-12-23 11:35] VITALS: BP 109/81; PULSE 83; RESP 18; TEMP 36.6; O2SAT 96
--- NOTE | 2022-12-23 14:19 | MRI_ITS ---
EXAM: MR HEAD WITHOUT INTRAVENOUS CONTRAST CLINICAL INDICATION: speech difficulty TECHNIQUE: Multiplanar and multisequence MR images of the brain were obtained without intravenous contrast. COMPARISON: CT brain 12/22/2022 FINDINGS: BRAIN AND EXTRA-AXIAL SPACES: Normal. No intra- or extra-axial hemorrhage. No evidence of acute infarct. No intracranial mass or mass effect. There is preservation of the zhu/white matter interface. Posterior fossa structures are unremarkable. Ventricles are appropriate for age. No hydrocephalus. Basal cisterns are patent. SELLA: Normal. Normal sella turcica, pituitary gland, infundibular stalk, optic chiasm and hypothalamus. AUDITORY SYSTEM: Normal. The internal auditory canals are patent. BONES/JOINTS: Intact calvarium. SINUSES: Opacification of the left maxillary sinus consistent with large mucous retention cyst. MASTOID AIR CELLS: Unremarkable as visualized. Clear. ORBITS: Unremarkable as visualized. Both globes, extraocular muscles, optic nerves and retrobulbar fat appear unremarkable. VASCULATURE: Unremarkable as visualized. Normal flow voids in the major intracranial circulation. MRI/Brain without Contrast IMPRESSION: No acute intracranial abnormality. Electronically Signed: Lorne Enriquez MD at 14:52 EDT ,
--- NOTE | 2022-12-23 14:30 | PN_ITS ---
Subjective Subjective Patient seen and examined. He had no complaints and had an uneventful night. The expressive aphasia had resolved. He had no active complaints and review of systems was otherwise negative. Objective Data Objective Data Vital Signs: Vital Signs Temp Pulse Resp BP Pulse Ox O2 Del Method 98 F 83 18 109/81 H 96 Room Air 12/23/22 11:35 12/23/22 11:35 12/23/22 11:35 12/23/22 11:35 12/23/22 11:35 12/23/22 11:35 Oxygen Delivery Method Room Air Weight: 224 lb 13.367 oz Body Mass Index (BMI) 26.6 Intake & Output: Intake and Output for Last 24 Hours 12/21/22 12/22/22 12/23/22 23:59 23:59 23:59 Intake Total 360 / 360 700 / 700 Output Total 0 / 0 Balance 360 / 360 700 / 700 Lab / Micro Data 12/22/22 12:15 12/22/22 12:15 Labs: Laboratory Results - last 24 hr 12/22/22 12:15: Triglycerides 53, Cholesterol 153, LDL Cholesterol 87, VLDL Cholesterol 11, HDL Cholesterol 55 Radiography Diagnostic Testing: Radiology Impression Echocardiogram 12/22/22 14:19 Interpretation Summary The estimated ejection fraction is 60 %. Trivial mitral valve insufficiency. Ordering Physician: Logan Aparicio Referring Physician: CLAIRE PCP Performed By: Monserrat Hester, TAYLER, RVT Rhythm Strip Rhythm Strip: Sinus Rhythm Rate: 78 Ectopy: PVC(s) Physical Exam Const alert, oriented x3 and no apparent distress General Appearance: cooperative HEENT normocephalic, head/scalp atraumatic, moist oral mucous membranes and oropharynx normal Eyes PERRL and EOMs intact bilaterally Neck no lymphadenopathy, supple and no JVD Lymph Lymphatic: no lymphadenopathy noted Resp normal respiratory effort, normal air movement and clear to auscultation bilaterally Cardio regular rate, regular rhythm, S1 normal heart sound, S2 normal heart sound and no murmurs GI normal to inspection, nondistended, normoactive bowel sounds, soft to palpation, non-tender and non-distended Extremity normal capillary refill, no clubbing, cyanosis or edema and no calf tenderness Skin General Skin Exam: no breakdown and turgor normal Neuro CN's II-XII intact bilaterally, no focal motor deficits, no sensory deficits noted and deep tendon reflexes 2+ bilaterally Motor Exam: strength 5/5 throughout Psych thought process normal, cooperative and affect normal Appearance: appropriate Assessment & Plan Assessment/Plan (1) Difficulty with speech: PLAN: Plan #Expressive aphasia * largely resolved. CT brain was negative for stroke * MRI of brain done; read is pending * get CTA head and neck * on PO aspirin 81mg daily and PO atorvastatin 40mg daily * 2D echo showed EF of 60% with trivial mitral valve insufficiency * on PO aspirin 81mg daily * #Polysubstance abuse * urine tox showed cannabinoids, MDMA and amphetamines * counseled to quit * DVT prophylaxis: SCDs Charges/Coding Visit Charges Inpatient E&M: 29982 Subs Hosp L2
[2022-12-23 15:31] VITALS: BP 139/77; PULSE 69; RESP 18; TEMP 36.3; O2SAT 97
--- NOTE | 2022-12-23 15:46 | CASEMGMT ---
SW met with patient. Introduced self and role at [facility]. SW asked patient if he needed any resources in regards to his drug use. Patient declined. Paulina PHAM
[2022-12-23 16:03] VITALS: BMI 26.6
--- NOTE | 2022-12-23 16:09 | NURSING ---
pt left AMA, AMA paperwork signed and one copy with patient. Doctor notified.
--- NOTE | 2022-12-23 16:38 | NURSING ---
Reviewed charting with Juwan Jacobo RN
--- NOTE | 2022-12-24 07:32 | DS.PCM_ITS ---
Providers Date of Admission: 12/22/22 Date of Discharge: 12/23/22 Primary Care Physician: No Primary Care Phys Reason For Visit: SPEECH DIFFICULITY Diagnosis Discharge Diagnosis (1) Difficulty with speech: Status: Acute Code(s): R47.9 - Unspecified speech disturbances Plan #Expressive aphasia * largely resolved. CT brain was negative for stroke * MRI of brain done; read is pending * get CTA head and neck * on PO aspirin 81mg daily and PO atorvastatin 40mg daily * 2D echo showed EF of 60% with trivial mitral valve insufficiency * on PO aspirin 81mg daily * #Polysubstance abuse * urine tox showed cannabinoids, MDMA and amphetamines * counseled to quit * DVT prophylaxis: SCDs Medications at Discharge Home Medications famotidine 20 mg tablet 20 mg PO BID #28 tabs 06/12/20 sildenafil 50 mg tablet 50 mg PO .prn 04/27/22 naproxen sodium 220 mg capsule (Aleve) 220 mg PO BID PRN pain 12/22/22 Hospital Course Operations None Procedures None and 2-D Echocardiogram Summary of Care Provided Minutes Spent on Discharge: 45 Hospital Course: Patient is a 52 y/o male with a PMH as outlined who presents via the ED on 12/22/2022 with a complaint of difficulty with speech since the day before admission. He was able to speak but had to speak slowly; he denied any focal weakness, any blurred vision or slurring of his speech. NIHSS was 0 on admission. HE admitted to chronic cannabinoid use, and urine tox showed amphetamines and MDMA as well cannabinoids. CT of the brain showed no evidence of hemorrhage or stroke. He was admitted and managed for TIA. He had an MRI of the brain which showed no evidence of a stroke and showed no acute intracranial pathology. 2D echo showed EF of 60% with normal diastole for age and no regional wall motion abnormalities as well as tricuspid valve insufficiency. Patient signed out AGAINST MEDICAL ADVICE before his MRI results came out. Patient was seen and examined on the morning of admission. He had no complaints and had an uneventful night. Review of systems was otherwise negative. Labs and vitals reviewed. Physical Exam Const alert, oriented x3, no apparent distress and healthy appearing General Appearance: cooperative, comfortable, well kempt and well developed Orientation / Consciousness: awake, oriented to person, oriented to place and oriented to time HEENT normocephalic, head/scalp atraumatic, hearing grossly normal bilaterally, moist oral mucous membranes and oropharynx normal Mouth: oral and palatal mucosa normal Eyes PERRL, EOMs intact bilaterally and conjunctivae normal Neck no lymphadenopathy, supple, no JVD, thyroid normal and no carotid bruits General: trachea midline Lymph Lymphatic: no lymphadenopathy noted Resp normal respiratory effort, normal air movement, no retractions, no use of accessory muscles and clear to auscultation bilaterally Auscultation: Negative for rales, rhonchi or wheezes Cardio regular rate, regular rhythm, S1 normal heart sound, S2 normal heart sound, no murmurs, no rub and no gallops GI normal to inspection, nondistended, normoactive bowel sounds, soft to palpation, non-tender and non-distended Extremity normal to inspection, full ROM, normal capillary refill, no clubbing, cyanosis or edema and no calf tenderness Skin no rashes or lesions noted General Skin Exam: no breakdown and turgor normal Neuro oriented x3, CN's II-XII intact bilaterally, moves all extremities, no focal motor deficits, no sensory deficits noted and deep tendon reflexes 2+ bilaterally Neuro Narrative: Patient's speech is deliberate and slow, at times there is a slight slurring of some words, patient has no expressive aphasia Sensorium / Orientation: awake, alert, oriented to person, oriented to place and oriented to time Motor Exam: strength 5/5 throughout Psych thought process normal, cooperative and affect normal Appearance: appropriate Weight / BMI Weight Weight: 224 lb 13.367 oz Body Mass Index (BMI) 26.6 ABG / Lab / Microbiology Data 12/22/22 12:15 12/22/22 12:15 Radiography Diagnostic Testing: Radiology Impression Echocardiogram 12/22/22 14:19 Interpretation Summary The estimated ejection fraction is 60 %. Trivial mitral valve insufficiency. Ordering Physician: Logan Aparicio Referring Physician: NO PCP Performed By: Monserrat Hester, TAYLER, RVT Brain MRI 12/23/22 14:19 IMPRESSION: No acute intracranial abnormality. Electronically Signed: Lorne Enriquez MD at 14:52 EDT , D/C Instructions Discharge Diet: Low fat / Low cholesterol Discharge Activity: Return to Normal Activity Weight Bearing Status: Weight bearing as tolerated Meaningful Use Info Meaningful Use Diagnoses (Choose all that apply): None applicable Discharge Plan Admission Admit Date/Time: 12/22/22 14:12 Primary Reason for Your Visit: TIA Attending Provider: Kacey Gallagher Primary Care Provider: Care Physician,No Primary Consulting Providers: Logan Aparicio Discharge Orders/Prescriptions Prescriptions: No Action sildenafil 50 mg tablet 50 mg PO .prn Patient Comments: Take 1 Tablet orally once per Day for 30 Days famotidine 20 MG tablet 20 mg PO BID Qty: 28 0RF naproxen sodium [Aleve] 220 mg capsule 220 mg PO BID PRN (Reason: pain) Referrals / Follow Up: Hemant Lozada Chi, MD [Med Staff - Active Staff] - Care Physician,No Primary [Primary Care Provider] - Disposition Disposition (needs filled in before D/C Order can be placed): Against Medical Advice Charges/Coding Visit Charges Inpatient E&M: 72240 Disch Hosp >30min
== END 2022-12-23 16:00 | disposition left against medical advice (07) ==
LOC: ED 13:17 → PCU 14:54
PROVIDERS: Admitting Provider Internal Medicine; Emergency Provider Emergency Medicine; Visit Provider Student in an Organized Health Care Education/Training Program
DX: R47.01 Aphasia (principal); F15.10 Other stimulant abuse, uncomplicated; F16.10 Hallucinogen abuse, uncomplicated; F17.210 Nicotine dependence, cigarettes, uncomplicated; F12.10 Cannabis abuse, uncomplicated; K21.9 Gastro-esophageal reflux disease without esophagitis; Z79.899 Other long term (current) drug therapy; I49.3 Ventricular premature depolarization
CPT/HCPCS: 70450; 70551; 71045; 80048; 80061; 80307; 82962; 84484; 85025; 85610; 85730; 93005; 93306; 99221; 99285; A4216; G0378

== ENCOUNTER 2023-12-12 14:18 | Emergency (ER) | payer MEDICAID, SELFPAY ==
[2023-12-12 14:19] VITALS: BP 132/83; PULSE 77; RESP 18; TEMP 36.1; O2SAT 96; BMI 26.7
--- NOTE | 2023-12-12 14:30 | ED.VIS.BACK ---
HPI History of Present Illness Chief Complaint: Back Detail of Chief Complaint: Left low back and mid left back pain after sneezing/coughing hard Informant: patient Onset/Context/Timing Onset: Today (0900) Context: Sudden Onset Chronic pain exacerbated by: Coughing and movement Injury: other (Occurred after patient coughed) Timing: Continuous and Waxes and wanes Quality: Dull and Aching Location: Thoracic (Lower thoracic spine), Lumbar (Paralumbar left only), Buttock, Right Leg and Left Leg Current Severity: Mild Maximum Severity: Severe Worsened by: improves with Movement, Ambulation, Bending, Lifting and - (Coughing) Relieved by: Nothing Associated Symptoms Associated Symptoms: Negative for Numbness, Tingling, Radiation to Right Leg, Radiation to Left Leg, Fever, Abdominal Pain, Dysuria, Unable to Ambulate, Unable to Transfer, Urinary Retention, Urinary Incontinence, Constipation or Fecal Incontinence Narrative Narrative: Patient is a 53-year-old male. Review of prior records indicates she has history of chronic back pain. Patient's back pain started after a violent cough at 0900. He states he took 2 Excedrin with no improvement. He is been able to urinate since. He denies loss of bowel control. He denies saddle paresthesia anesthesia. He denies pain radiate into either leg/lower extremity. He denies foot drop. He denies buckling of his knees when he walks. He denies nausea, vomiting or diarrhea. He denies constipation. He denies fever or chills. Prior similar symptoms: No Recent Illness/Hospitalization: No [facility] Medical History History of Leach's palsy Cannabis abuse Stimulant use disorder Adjustment disorder with mixed anxiety and depressed mood Vision abnormalities Stroke Back problem Alcohol abuse GERD (gastroesophageal reflux disease) Pancreatitis Contusion of right elbow Sprain of left hand Left wrist sprain Surgical screw in right hand Home Medications ?Medication ?Instructions ?Recorded ?Last Taken ?Type famotidine 20 mg tablet 20 mg PO BID #28 tabs 06/12/20 12/21/22 Rx sildenafil 50 mg tablet 50 mg PO .prn 04/27/22 12/19/22 History naproxen sodium 220 mg capsule 220 mg PO BID PRN pain 12/22/22 Unknown History (Aleve) naproxen 500 mg tablet 500 mg PO BID #14 tabs 12/12/23 Unknown Rx Allergy/AdvReac Type Severity Reaction Status Date / Time No Known Allergies Allergy Verified 12/12/23 14:19 Family History Other Anxiety Arthritis CVA (cerebral vascular accident) Cancer Colon cancer Depression Diabetes Hypertension Kidney disease Liver disease Mental disorder Seizures Thyroid disorder Surgical History History of back surgery Social History household members: family Smoking Status: Current every day smoker tobacco type: cigarettes Tobacco: How many years used: 10 alcohol intake: never substance use type: marijuana and other details: marked yes on illegal drugs what type of physical activity do you participate in: walking ROS ROS ED Constitutional Constitutional ED: Denies chills, fever(s), subjective or sweats Gastrointestinal Gastrointestinal: Reports other Details: There is no incontinence of stool. ; Denies abdominal pain, constipation, diarrhea, melena, nausea or vomiting Genitourinary Genitourinary ED: Reports other Details: Patient is able to urinate. Musculoskeletal Musculoskeletal: Reports back pain; Denies arthralgias, myalgias or neck pain Integumentary Denies abscess, Abrasions or rash Neurologic Neurologic: Denies paresthesias or weakness EXAM Physical Exam Const Vital Signs: 12/12/23 14:19 Temperature 96.9 F L Temperature Source Temporal Pulse Rate 77 Respiratory Rate 18 Blood Pressure 132/83 H Blood Pressure Mean 99 Pulse Ox 96 Oxygen Delivery Method Room Air Positive well nourished and well developed Constitutional Narrative: Patient appears uncomfortable as he is lying on the examination cot. General Appearance ED: well developed HEENT Reports moist mucous membranes HEENT Narrative: Head is atraumatic normocephalic. Ears normal. Eyes PERRL and EOMs intact bilaterally General Eye ED: Negative for pale conjunctiva or scleral icterus Neck no lymphadenopathy, supple and no JVD Resp normal respiratory effort and clear to auscultation bilaterally Cardio regular rate, regular rhythm, S1 normal heart sound, S2 normal heart sound and no murmurs GI soft to palpation, non-tender and no masses Back/Spine normal to inspection; Negative for no thoracic nor lumbar tenderness Back/Spine Narrative: Tenderness left paralumbar and parathoracic region. There is no evidence of trauma i.e. abrasion, bruising or soft tissue swelling. Patella and ankle reflex are 2+ and symmetric. EHLs intact. Normal sensation L3-S1 dermatome. There is no clonus or Babinski sign at right or left. 5 or 5 strength with plantar and dorsiflexion. Lumbar Spine / Lower Back: ROM limited and straight leg raise negative bilaterally Extremity normal to inspection and no clubbing, cyanosis or edema Neuro oriented x3 and no sensory deficits noted Sensorium / Orientation: alert Motor Exam: strength 5/5 throughout Deep Tendon Reflexes: Rt Patellar (L4): 2+, Lt Patellar (L4): 2+, Rt Ankle (S1): 2+ and Lt Ankle (S1): 2+ Deep Tendon Reflexes Back: Rt Patellar (L4): 2+, Lt Patellar (L4): 2+, Rt Ankle (S1): 2+ and Lt Ankle (S1): 2+ Plantar Reflex: Downgoing: bilateral Psych mental status grossly normal Skin no rashes or lesions noted and no wounds MDM MDM MDM Narrative Medical decision making narrative: Differential diagnosis includes muscle strain, muscle spasm, history of physical is not consistent with herniated disc. Patient was treated with 1 Naprosyn and Selby tablet. After reviewing prior records and noting that patient's had overdose in the past will not prescribe opiate analgesics to go home especially since there is a history of alcoholism as well. Discharge Plan Triage Chief Complaint: Back ED Provider: Jacoby Carmona Dx/Rx/DC Orders Clinical Impression: Low back pain, Dorsal back pain Instructions: ED Back Pain (Acute or Chronic) Prescriptions: New naproxen 500 mg tablet 500 mg PO BID Qty: 14 0RF No Action sildenafil 50 mg tablet 50 mg PO .prn Patient Comments: Take 1 Tablet orally once per Day for 30 Days famotidine 20 MG tablet 20 mg PO BID Qty: 28 0RF naproxen sodium [Aleve] 220 mg capsule 220 mg PO BID PRN (Reason: pain) Primary Care Provider: Maicol Weaver Referrals: Maicol Weaver MD [Primary Care Provider] - 1 Week if not improving Activity Restrictions/Additional Instructions: 1. Apply ice to your left mid and lower back 6-10 times a day 2. If you are unable to urinate, have loss of bowel control are dragging a foot when you walk return to the emergency department immediately 3. You may have discomfort for several days. Print Language: Uzbek Disposition Disposition: Home, Self Care
[2023-12-12] MEDS: Naproxen 500 MG Tablet PO (14:35)
[2023-12-12] MEDS: HYDROcodone Bitartrate/Apap 5/325 Tablet PO (14:35)
[2023-12-12 14:43] VITALS: BP 132/83; PULSE 77; RESP 18; TEMP 36.6; O2SAT 99
== END 2023-12-12 14:51 | disposition home or self-care (01) ==
LOC: ED 14:45
PROVIDERS: Emergency Provider Emergency Medicine; PCP Family Medicine; Visit Provider Emergency Medicine
DX: M54.50 Low back pain, unspecified (principal); F17.210 Nicotine dependence, cigarettes, uncomplicated; F12.90 Cannabis use, unspecified, uncomplicated
CPT/HCPCS: 99282